=== PATIENT | female | born 2000 | race Caucasian/White ===

== ENCOUNTER 2020-04-03 16:52 | Outpatient (CLI) | payer OTHER, MEDICAID | END 2020-04-03 16:53 | disposition EMS.NT | LOC: EMS 16:52 | PROVIDERS: ATTEND Surgery | DX: R55 Syncope and collapse (principal); R56.9 Unspecified convulsions ==

== ENCOUNTER 2020-05-19 15:40 | Emergency (ER) | payer MEDICAID ==
[2020-05-19 16:28] LABS: BASOPHILS % (AUTO) 0.4 %; EOSINOPHILS % (AUTO) 0.4 %; HGB - HEMOGLOBIN 14.5 g/dL (12.0-16.0); LYMPHOCYTES # (AUTO) 2.9 10^3/uL (1.5-3.5); MEAN CORPUSCULAR HEMOGLOBIN 34.5 pg (27.0-31.0); MEAN CORPUSCULAR HGB CONC 35.9 g/dL (32.0-36.0); MEAN CORPUSCULAR VOLUME 96.2 fL (81.0-99.0); MEAN PLATELET VOLUME 11.4 fL (7.9-10.8); MONOCYTES # (AUTO) 0.8 10^3/uL (0.0-1.0); MONOCYTES % (AUTO) 8.3 %; NEUTROPHILS # (AUTO) 5.3 10^3/uL (1.5-6.6); NEUTROPHILS % (AUTO) 58.6 %; PLT - PLATELET COUNT 335 10^3/uL (130-450); RED CELL DISTRIBUTION WIDTH 11.5 % (12.0-15.0)
[2020-05-19 16:35] LABS: ALBUMIN 4.7 g/dL (3.2-5.5); ALBUMIN/GLOBULIN RATIO 1.5 (1.0-2.2); BILIRUBIN,TOTAL 0.5 mg/dL (0.2-1.0); CALCIUM 9.7 mg/dL (8.5-10.3); CREATININE 0.9 mg/dL (0.4-1.0); TOTAL PROTEIN 7.8 g/dL (6.7-8.2)
--- NOTE | 2020-05-19 16:42 | ED Physician Documentation ---
History of Present Illness - Stated complaint Stated Complaint: FEMALE - Chief complaint Chief Complaint: Abd Pain - History obtained from History obtained from: Patient, Caregiver - History of Present Illness Timing: Prior to arrival, How many weeks ago (3) - Additonal information Additional information: 20-year-old female presents to the emergency department for dysuria and vaginal discharge. 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 She is attended by her caregiver. The patient does report that she has been sexually active with her boyfriend and recently they had used shower gel for lubrication not understanding that it may be vaginally an irritant. This sexual encounter may have occurred a few weeks ago but patient states it is only hurt to pee for a few days. She does state that she has had vaginal discharge for about 2 months. Her caregiver reports that they had concerns that she may have had a yeast infection and was treated with miconazole cream recently. Patient denies that she has had any fevers or pertinent surgical history. meds: Midodrine, fludrocortisone, Aripiprazole, desvenlafaxine, Buspirone. Review of Systems Unable to obtain: Other (difficult to obtain) Constitutional: denies: Fever, Chills Cardiac: denies: Chest pain / pressure Respiratory: denies: Dyspnea, Cough GI: denies: Abdominal Pain, Abdominal Swelling, Vomiting : reports: Dysuria, Vaginal bleeding, Irregular menses, Control (IUD in place). denies: Hematuria Skin: denies: Rash, Lesions Musculoskeletal: denies: Neck pain, Back pain Neurologic: denies: Generalized weakness, Focal weakness PD PAST MEDICAL HISTORY - Present Medications Home Medications: Ambulatory Orders Medication Instructions Recorded Confirmed Doxycycline Hyclate 100 mg PO BID #20 capsule 05/19/20 metroNIDAZOLE [Flagyl] 500 mg PO BID #20 tablet 05/19/20 - Allergies Allergies/Adverse Reactions: Allergies Allergy/AdvReac Type Severity Reaction Status Date / Time walnut Allergy Unknown Verified 05/19/20 15:47 PD ED PE NORMAL - General General: Alert and oriented X 3, No acute distress - HEENT HEENT: Atraumatic, EOMI - Neck Neck: Supple, no meningeal sign, No adenopathy - Cardiac Cardiac: RRR, No murmur - Respiratory Respiratory: No respiratory distress - Abdomen Abdomen: Normal bowel sounds. No: Non tender (suprapubic lower pelvic tenderness) - Female Female : Smoke Eater present, Other (Inflamed friable cervix with a large amount of thick yellow discharge seen exiting cervical os. IUD strings are not present. Bilateral adnexal tenderness.) - Back Back: No CVA TTP - Derm Derm: Normal color, Warm and dry - Extremities Extremities: No deformity - Neuro Neuro: Alert and oriented X 3, structures engineer 2-12 intact, No motor deficit Eye Opening: Spontaneous Motor: Obeys Commands Verbal: Oriented GCS Score: 15 Results - Vitals Vitals: Vital Signs - 24 hr 05/19/20 05/19/20 15:47 19:21 Temperature 36.6 C 37.1 C Heart Rate 113 H 93 Respiratory 16 20 Rate Blood Pressure 109/71 108/75 O2 Saturation 96 98 Oxygen O2 Source Room air - Labs Labs: Laboratory Tests 05/19/20 05/19/20 05/19/20 16:17 16:17 16:58 WBC 9.0 RBC 4.20 Hgb 14.5 Hct 40.4 MCV 96.2 MCH 34.5 H MCHC 35.9 RDW 11.5 L Plt Count 335 MPV 11.4 H Neut # (Auto) 5.3 Lymph # (Auto) 2.9 [place] # (Auto) 0.8 Eos # (Auto) 0.0 Baso # (Auto) 0.0 Absolute Nucleated RBC 0.00 Nucleated RBC % 0.0 Sodium 139 Potassium 3.6 Chloride 104 Carbon Dioxide 24 Anion Gap 11.0 BUN 16 Creatinine 0.9 Estimated GFR (MDRD) 80 L Glucose 98 Calcium 9.7 Total Bilirubin 0.5 AST 24 ALT 31 Alkaline Phosphatase 74 Total Protein 7.8 Albumin 4.7 Globulin 3.1 Albumin/Globulin Ratio 1.5 Lipase 24 Urine Color YELLOW Urine Clarity CLEAR Urine pH 7.0 Ur Specific [place] 1.015 Urine Protein NEGATIVE Urine Glucose (UA) NEGATIVE Urine Ketones NEGATIVE Urine Occult Blood NEGATIVE Urine Nitrite NEGATIVE Urine Bilirubin NEGATIVE Urine Urobilinogen 0.2 (NORMAL) Ur Leukocyte Esterase NEGATIVE Ur Microscopic Review NOT INDICATED Urine Culture Comments NOT INDICATED Urine HCG, Qual NEGATIVE - Rads (name of study) Pelvic US Radiology: Final report received ( Increased bilateral adnexal vascularity with right distal dilation at 5 mm, concern for PID. 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 The timing of the events is unclear. As patient is not able to provide a clear timeline - Her urine shows no signs of infection. She is not . - A pelvic exam was completed and she had a very friable cervix with a large amount of yellow discharge in the vault. In addition she had bilateral adnexal tenderness the right greater than left. My suspicion is that this young lady has PID. I will proceed with ultrasound imaging to rule out a TOA. I have prescribed ceftriaxone to be given here in the emergency department and I will plan to discharge her with a prescription for doxycycline and Flagyl on discharge. Departure - Departure Disposition: 01 Home, Self Care Clinical Impression: PID (acute pelvic inflammatory disease) Condition: Stable Record reviewed to determine appropriate education?: Yes Instructions: ED PID Follow-Up: Gaurav Morales ARNP [Primary Care Provider] - Prescriptions: Doxycycline Hyclate 100 mg PO BID #20 capsule metroNIDAZOLE [Flagyl] 500 mg PO BID #20 tablet Comments: Ning I am concerned that the vaginal discharge and pain that you are having is most likely a condition called PID. This is also called pelvic inflammatory disease and it is infection and inflammation of the pelvic organs usually due to unprotected sex and sexually transmitted infection. Though we do not have the results of your STD testing back yet we are treating as you as though you do have sexually transmitted infection. We have given you an injection of an antibiotic called ceftriaxone here in the emergency department and you are being prescribed 2 antibiotics to take twice a day for the next 10 days at home. I would expect that with these antibiotics your vaginal discharge and pain begins to improve over the next 3 to 4 days if your symptoms are not improving, you have high fevers, uncontrolled vomiting then please return for a second look. Though you cannot feel the IUD strings and they were not seen on your pelvic exam the IUD is still situated within your uterus. I would ask that you follow- up with your primary care provider or your inspector shells within the next 10 days to 2 weeks for this ER visit.
[2020-05-19 17:22] LABS: BILIRUBIN,URINE NEGATIVE (NEGATIVE); GLUCOSE, URINE (UA) NEGATIVE (NEGATIVE); KETONES,URINE (UA) NEGATIVE (NEGATIVE); LEUKOCYTE ESTERASE, URINE NEGATIVE (NEGATIVE); NITRITE,URINE NEGATIVE (NEGATIVE); OCCULT BLOOD,URINE NEGATIVE (NEGATIVE); PROTEIN,URINE NEGATIVE (NEGATIVE); UROBILINOGEN,URINE 0.2 (NORMAL) E.U./dL (NORMAL)
[2020-05-19 17:36] LABS: CLARITY,URINE CLEAR (CLEAR); HCG UR QUAL NEGATIVE
[2020-05-19 19:21] VITALS: BP 108/75
[2020-05-19] MEDS: cefTRIAXone 250 MG VIAL IM STA (19:22)
[2020-05-19] MEDS: LIDOCAINE 1% 2 ML VIAL MC ONE (19:23)
--- NOTE | 2020-05-19 19:35 | Ultrasound Report ---
PROCEDURE: Transvaginal INDICATIONS: pelvic pain; PID; r/o toa TECHNIQUE: Real-time scanning was performed of the pelvic organs, with image documentation. Additional endovagi nal scanning was necessary due to incomplete visualization of the adnexal and endometrial structures by transabdominal scanning. COMPARISON: None. FINDINGS: Transabdominal scanning: Limited scanning through the kidneys shows no hydronephrosis. Punctate echo genic foci within the bilateral kidneys may represent nonobstructing calculi. No pathologic free abdo mian or pelvic fluid. Endovaginal scanning: Uterus: Uterus is normal in size at 6.4 x 4.0 x 4.7 cm. The endometrium measures 3 mm in combined t hickness. An IUD is present within the uterine fundus in the expected location. Trace fluid is prese nt around the IUD which may be physiologic. Ovaries: The right ovary measures 2.7 x 2.7 x 2.4 cm and the left ovary measures 2.7 x 1.7 x 1.9 cm. Multiple small follicles are visualized bilaterally. Multiple tortuous, ectatic adnexal vessels are noted bilaterally. No findings to suggest fluid-filled fallopian tubes. IMPRESSION: 1. IUD in expected location. Trace fluid around the IUD may be physiologic in nature. 2. No dilatation of the fallopian tubes to suggest tubo-ovarian abscess. 3. Tortuous, ectatic gonadal vessels. These findings may be associated with pelvic congestion syndrom e. Please correlate clinically. Reviewed by: Dee Dee Blanco MD on 05/19/2020 7:33 PM PDT Approved by: Dee Dee Blanco MD on 05/19/2020 7:33 PM PDT Station ID: [id number]
--- NOTE | 2020-05-19 20:22 | Ultrasound Report ---
INDICATIONS: pelvic pain; PID; r/o toa TECHNIQUE: Real-time scanning was performed of the pelvic organs, with image documentation. Additiona l endovaginal scanning was necessary due to incomplete visualization of the adnexal and endometrial s tructures by transabdominal scanning. COMPARISON: None. FINDINGS: Transabdominal scanning: Limited scanning through the kidneys shows no hydronephrosis. Punc pereira echogenic foci within the bilateral kidneys may represent nonobstructing calculi. No pathologic free abdominal or pelvic fluid. Endovaginal scanning: Uterus: Uterus is normal in size at 6.4 x 4.0 x 4.7 cm. The endometrium measure s 3 mm in combined thickness. An IUD is present within the uterine fundus in the expected location. T race fluid is present around the IUD which may be physiologic. Ovaries: The right ovary measures 2.7 x 2.7 x 2.4 cm and the left ovary measures 2.7 x 1.7 x 1.9 cm. Multiple small follicles are visualized bilaterally. Multiple tortuous, ectatic adnexal vessels are n oted bilaterally. No findings to suggest fluid-filled fallopian tubes. IMPRESSION: 1. IUD in expected location. Trace fluid around the IUD may be physiologic in nature. 2. No dilatation of the fallopian tubes to suggest tubo-ovarian abscess. 3. Tortuous, ectatic gonadal vessels. These findings may be associated with pelvic congestion syndrom e. Please correlate clinically. Reviewed by: Dee Dee Blanco MD on 05/19/2020 8:21 PM PDT Approved by: Dee Dee Blanco MD on 05/19/2020 8:21 PM PDT Station ID: [id number]
[2020-05-19 21:28] LABS: TRICHOMONAS VAGINALIS DNA NEGATIVE (NEGATIVE)
[2020-05-19 21:59] LABS: CANDIDA GROUP DNA NEGATIVE (NEGATIVE); CANDIDA KRUSEI DNA NEGATIVE (NEGATIVE); TRICHOMONAS VAGINALIS DNA NEGATIVE (NEGATIVE)
== END 2020-05-19 20:00 | disposition home or self-care (01) ==
LOC: ED 15:40
DX: N73.9 Female pelvic inflammatory disease, unspecified (principal); Z97.5 Presence of (intrauterine) contraceptive device
CPT/HCPCS: 36415; 76830; 76856; 80053; 81001; 81003; 81025; 83690; 85025; 87086; 87210; 87491; 87591; 87661; 87801; 96372; 99284

== ENCOUNTER 2020-05-20 21:00 | Outpatient (CLI) | payer OTHER, MEDICAID | END 2020-05-20 23:59 | disposition critical access hospital (66) | LOC: EMS 21:00 | PROVIDERS: ATTEND Surgery | DX: R56.9 Unspecified convulsions (principal) | CPT/HCPCS: A0425; A0427 ==

== ENCOUNTER 2020-06-20 20:53 | Emergency (ER) | payer OTHER, MEDICAID ==
--- NOTE | 2020-06-20 21:29 | ED Physician Documentation ---
PD HPI FEMALE - Stated complaint Stated Complaint: FEMALE - Chief complaint Chief Complaint: Allergic Rx - History obtained from History obtained from: Patient - Additional information Additional information: The sex toys she usually uses broke, in the interim pending getting a new one she was using a hairbrush but because it was not a sex toy she put condoms on it not realizing they were latex which she is very allergic to. This happened over several day time span, and now her privates are very inflamed. Review of Systems Constitutional: denies: Fever, Chills Throat: reports: Reviewed and negative Cardiac: reports: Reviewed and negative Respiratory: reports: Reviewed and negative PD PAST MEDICAL HISTORY - Past Medical History Cardiovascular: Other Respiratory: None Neuro: Other Endocrine/Autoimmune: None GI: None MEDICARE INTERVIEWER: None : None HEENT: None Psych: Schizophrenia, ADD/ADHD, Other Musculoskeletal: None Derm: None - Past Surgical History Past Surgical History: No - Present Medications Home Medications: Ambulatory Orders Medication Instructions Recorded Confirmed Doxycycline Hyclate 100 mg PO BID #20 capsule 05/19/20 05/20/20 metroNIDAZOLE [Flagyl] 500 mg PO BID #20 tablet 05/19/20 05/20/20 ARIPiprazole [Aripiprazole] 15 mg PO QPM 05/20/20 05/20/20 Acetaminophen [Tylenol Extra 500 mg PO DAILY PRN 05/20/20 05/20/20 Strength] Buspirone HCl 10 mg PO TID 05/20/20 05/20/20 Desvenlafaxine Succinate 100 mg PO DAILY 05/20/20 05/20/20 [Desvenlafaxine Succinate ER] Fludrocortisone [Florinef] 2 tab PO DAILY 05/20/20 05/20/20 Ibuprofen 200 mg PO DAILY PRN 05/20/20 05/20/20 Midodrine HCl 5 mg PO DAILY 05/20/20 05/20/20 Phenazopyridine HCl [Pyridium] 100 mg PO DAILY PRN 05/20/20 05/20/20 polyethylene glycoL 3350 [Miralax] 17 gm PO DAILY PRN 05/20/20 05/20/20 Hydrocortisone 1% Oint 1 applic TP TID #2 tub 06/20/20 [Hydrocortisone] - Allergies Allergies/Adverse Reactions: Allergies Allergy/AdvReac Type Severity Reaction Status Date / Time Latex, Natural Rubber Allergy Itching Verified 06/20/20 20:57 walnut Allergy Unknown Verified 05/20/20 21:34 - Social History Does the pt smoke?: No Smoking Status: Never smoker Does the pt drink ETOH?: Yes Does the pt have substance abuse?: No - Immunizations Immunizations are current?: Yes - POLST Patient has POLST: No PD ED PE NORMAL - Vitals Vital signs reviewed: Yes - General General: Alert and oriented X 3, No acute distress - Female Female : Other (Exam done with Gaurav CARPENTER present and chaperoning, mild vulvar irritation and clearish discharge without skin breakdown.) Results - Vitals Vitals: Vital Signs - 24 hr 06/20/20 20:57 Temperature 36.6 C Heart Rate 86 Respiratory 16 Rate Blood Pressure 124/77 O2 Saturation 97 Oxygen O2 Source Room air PD MEDICAL DECISION MAKING - ED course ED course: 20-year-old with underlying psychiatric illness presents with apparent local latex contact dermatitis to the vagina. Hesitant to use oral steroids given her underlying psychiatric illness and relatively mild changes on exam, topical hydrocortisone was administered. Departure - Departure Disposition: 01 Home, Self Care Clinical Impression: Contact dermatitis Qualifiers: Contact dermatitis type: irritant Contact dermatitis trigger: other chemical product Qualified Code(s): L24.5 - Irritant contact dermatitis due to other chemical products Condition: Good Record reviewed to determine appropriate education?: Yes Instructions: ED Dermatitis Contact Follow-Up: [facility] [Provider Group] Prescriptions: Hydrocortisone 1% Oint [Hydrocortisone] 1 applic TP TID #2 tub
[2020-06-20] MEDS ORDERED: HYDROCORTISONE 1% OINTMENT 28 GM TUBE TOP STA (21:42)
[2020-06-20] MEDS ORDERED: HYDROCORTISONE 1% CREAM 28 GM TUBE ONE (22:13)
[2020-06-20 22:15] VITALS: BP 120/71
[2020-06-20] MEDS ORDERED: HYDROCORTISONE 1% CREAM 28 GM TUBE TOP SCH (23:00)
== END 2020-06-20 22:15 | disposition home or self-care (01) ==
LOC: ED 20:53
DX: L24.5 Irritant contact dermatitis due to other chemical products (principal)
CPT/HCPCS: 99282; 99283; A9270

== ENCOUNTER 2020-07-13 19:00 | Outpatient (CLI) | payer OTHER, MEDICAID | END 2020-07-13 19:01 | disposition critical access hospital (66) | LOC: EMS 19:00 | PROVIDERS: ATTEND Surgery | DX: R44.3 Hallucinations, unspecified (principal) | CPT/HCPCS: A0425; A0429 ==

== ENCOUNTER 2020-07-13 19:21 | Emergency (ER) | payer OTHER, MEDICAID ==
[2020-07-13] MEDS ORDERED: LORazepam 2 MG/ML VIAL IVP STA (19:23)
--- NOTE | 2020-07-13 19:33 | ED Physician Documentation ---
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 : None HEENT: None Psych: Schizophrenia, ADD/ADHD, Other Musculoskeletal: None Derm: None - Past Surgical History Past Surgical History: No - Present Medications Home Medications: Ambulatory Orders Medication Instructions Recorded Confirmed ARIPiprazole [Aripiprazole] 20 mg PO QPM 05/20/20 05/20/20 Acetaminophen [Tylenol Extra 500 mg PO DAILY PRN 05/20/20 05/20/20 Strength] Buspirone HCl 10 mg PO TID 05/20/20 05/20/20 Desvenlafaxine Succinate 100 mg PO DAILY 05/20/20 05/20/20 [Desvenlafaxine Succinate ER] Fludrocortisone [Florinef] 2 tab PO DAILY 05/20/20 05/20/20 Ibuprofen 200 mg PO DAILY PRN 05/20/20 05/20/20 Midodrine HCl 5 mg PO DAILY 05/20/20 05/20/20 Phenazopyridine HCl [Pyridium] 100 mg PO DAILY PRN 05/20/20 05/20/20 polyethylene glycoL 3350 [Miralax] 17 gm PO DAILY PRN 05/20/20 05/20/20 Hydrocortisone 1% Oint 1 applic TP TID #2 tub 06/20/20 [Hydrocortisone] Cetirizine HCl 10 mg PO 07/13/20 Valacyclovir HCl [Valacyclovir] 500 mg PO DAILY 07/13/20 07/13/20 - Allergies Allergies/Adverse Reactions: Allergies Allergy/AdvReac Type Severity Reaction Status Date / Time Latex, Natural Rubber Allergy Itching Verified 06/20/20 20:57 walnut Allergy Unknown Verified 05/20/20 21:34 - Social History Does the pt smoke?: No Smoking Status: Never smoker Does the pt drink ETOH?: Yes Does the pt have substance abuse?: No - Immunizations Immunizations are current?: Yes - POLST Patient has POLST: No PD ED PE NORMAL - Vitals Vital signs reviewed: Yes - General General: Other (She is looking around and staring, she is not following commands though. Intermittently screaming.) - HEENT HEENT: Other (Dilated pupils) - Neck Neck: Supple, no meningeal sign, No bony TTP - Derm Derm: No rash - Neuro Neuro: No motor deficit (Moving all extremities excellently), No sensory deficit Eye Opening: Spontaneous Motor: Obeys Commands (Intermittently) Verbal: Inappropriate GCS Score: 13 Results - Vitals Vitals: Vital Signs - 24 hr 07/13/20 07/13/20 07/13/20 19:22 19:40 21:00 Temperature 37.5 C Heart Rate 95 107 H 113 H Respiratory 26 H 16 18 Rate Blood Pressure 131/97 H 122/95 H 112/86 H O2 Saturation 97 97 96 Oxygen O2 Source Room air - Labs Labs: Laboratory Tests 07/13/20 20:12 Ur Specific [place] 1.025 Urine HCG, Qual NEGATIVE Urine Opiates Screen NEGATIVE Ur Oxycodone Screen NEGATIVE Urine Methadone Screen NEGATIVE Ur Propoxyphene Screen NEGATIVE Ur Barbiturates Screen NEGATIVE Ur Tricyclics Screen NEGATIVE Ur Phencyclidine Scrn NEGATIVE Ur Amphetamine Screen NEGATIVE U Methamphetamines Scrn NEGATIVE U Benzodiazepines Scrn NEGATIVE Urine Cocaine Screen NEGATIVE U Cannabinoids Screen POSITIVE H PD MEDICAL DECISION MAKING - ED course ED course: 20 yo with brief psychosis d/t MJ overdose. Better with time and ativan IM. Back to baseline. Departure - Departure Disposition: 01 Home, Self Care Clinical Impression: Poisoning, marijuana Qualifiers: Encounter type: initial encounter Injury intent: accidental or unintentional Q ualified Code(s): T40.7X1A - Poisoning by cannabis (derivatives), accidental (unintentional), initial encounter Condition: Good Record reviewed to determine appropriate education?: Yes Instructions: ED Drug Abuse General Comments: Call your doctor to arrange a follow-up appointment, make the next available appointment. In the interim, return anytime if worse or if new symptoms develop. Discharge Date/Time: 07/13/20 21:38
[2020-07-13 21:28] VITALS: BP 112/86
[2020-07-13 21:31] LABS: MUDS CUTOFF CONCENTRATIONS CUTOFF CONC BELOW:
[2020-07-13 21:37] LABS: HCG UR QUAL NEGATIVE
[2020-07-13 21:47] LABS: AMPHETAMINE SCREEN,URINE NEGATIVE (NEGATIVE); BENZODIAZEPINES SCREEN, URINE NEGATIVE (NEGATIVE); COCAINE SCREEN URINE NEGATIVE (NEGATIVE); METHADONE SCREEN, URINE NEGATIVE (NEGATIVE); METHAMPHETAMINES SCREEN, URINE NEGATIVE (NEGATIVE); OPIATE SCREEN, URINE NEGATIVE (NEGATIVE); OXYCODONE SCREEN, URINE NEGATIVE (NEGATIVE); PROPOXYPHENE SCREEN, URINE NEGATIVE (NEGATIVE); TRICYCLIC ANTIDEPRESSANT,URINE NEGATIVE (NEGATIVE)
== END 2020-07-13 21:38 | disposition home or self-care (01) ==
LOC: EDBD → EDUNIT# → ED 19:21
DX: T40.7X1A Poisoning by cannabis (derivatives), accidental (unintentional), initial encounter (principal); F23 Brief psychotic disorder; F12.959 Cannabis use, unspecified with psychotic disorder, unspecified
CPT/HCPCS: 80306; 81025; 96374; 99281; 99283; J2060

== ENCOUNTER 2020-09-14 15:29 | Outpatient (CLI) | payer OTHER, MEDICAID | END 2020-09-14 15:30 | disposition home or self-care (01) | LOC: COV 15:29 | PROVIDERS: ATTEND Family Medicine | DX: R05 Cough (principal); M79.10 Myalgia, unspecified site; R53.83 Other fatigue; R19.7 Diarrhea, unspecified; R09.81 Nasal congestion; J34.89 Other specified disorders of nose and nasal sinuses; R11.2 Nausea with vomiting, unspecified; Z20.828 Contact with and (suspected) exposure to other viral communicable diseases ==

== ENCOUNTER 2020-10-23 16:01 | Emergency (ER) | payer OTHER, MEDICAID ==
[2020-10-23 16:09] VITALS: BP 128/85
[2020-10-23] MEDS ORDERED: SODIUM CHLORIDE 0.9% 1,000 ML IV STA ×2 (16:50)
[2020-10-23] MEDS ORDERED: BUTALB/ACETAM/CAFF 50/325/40MG TABLET PO STA (17:01)
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
== END 2020-10-23 18:00 | disposition home or self-care (01) ==
LOC: ED 16:01
DX: F41.9 Anxiety disorder, unspecified (principal); I49.8 Other specified cardiac arrhythmias; R51.9 Headache, unspecified
CPT/HCPCS: 99283; 99284; A9270; 80048; 85025

== ENCOUNTER 2020-11-08 12:12 | Outpatient (CLI) | payer MEDICAID | END 2020-11-08 12:13 | disposition critical access hospital (66) | LOC: EMS 12:12 | DX: H92.02 Otalgia, left ear (principal); T16.2XXA Foreign body in left ear, initial encounter; X58.XXXA Exposure to other specified factors, initial encounter; Y93.89 Activity, other specified | CPT/HCPCS: A0425; A0429; A0999 ==

== ENCOUNTER 2020-11-08 12:34 | Emergency (ER) | payer MEDICAID, OTHER ==
[2020-11-08 12:42] VITALS: BP 147/100
--- NOTE | 2020-11-08 12:49 | ED Physician Documentation ---
PD HPI HEENT - Stated complaint Stated Complaint: LEAD IN EAR - Chief complaint Chief Complaint: Heent - History obtained from History obtained from: Patient, EMS (She comes to the ER via EMS Because she was scratching in her left ear with a pencil and the lead broke off and it is in her ear canal. No pain. Hearing is normal.) Review of Systems Eyes: reports: Reviewed and negative Ears: reports: Foreign body. denies: Loss of hearing, Ear pain, Drainage/discharge, Tinnitus/ringing Nose: denies: Rhinorrhea / runny nose, Congestion PD PAST MEDICAL HISTORY - Past Medical History Cardiovascular: Other Respiratory: None Neuro: Other Endocrine/Autoimmune: None GI: None PROGRAM ASSOCIATE: None : None HEENT: None Psych: Schizophrenia, ADD/ADHD, Other Musculoskeletal: None Derm: None - Past Surgical History Past Surgical History: No - Present Medications Home Medications: Ambulatory Orders Medication Instructions Recorded Confirmed ARIPiprazole [Aripiprazole] 20 mg PO QPM 05/20/20 05/20/20 Acetaminophen [Tylenol Extra 500 mg PO DAILY PRN 05/20/20 05/20/20 Strength] Buspirone HCl 10 mg PO TID 05/20/20 05/20/20 Desvenlafaxine Succinate 100 mg PO DAILY 05/20/20 05/20/20 [Desvenlafaxine Succinate ER] Fludrocortisone [Florinef] 2 tab PO DAILY 05/20/20 05/20/20 Ibuprofen 200 mg PO DAILY PRN 05/20/20 05/20/20 Midodrine HCl 5 mg PO DAILY 05/20/20 05/20/20 polyethylene glycoL 3350 [Miralax] 17 gm PO DAILY PRN 05/20/20 05/20/20 Hydrocortisone 1% Oint 1 applic TP TID #2 tub 06/20/20 [Hydrocortisone] Cetirizine HCl 10 mg PO 07/13/20 Valacyclovir HCl [Valacyclovir] 500 mg PO DAILY 07/13/20 07/13/20 - Allergies Allergies/Adverse Reactions: Allergies Allergy/AdvReac Type Severity Reaction Status Date / Time Latex, Natural Rubber Allergy Itching Verified 11/08/20 12:42 walnut Allergy Unknown Verified 11/08/20 12:42 - Social History Does the pt smoke?: No Smoking Status: Never smoker Does the pt drink ETOH?: Yes Does the pt have substance abuse?: No - Immunizations Immunizations are current?: Yes - POLST Patient has POLST: No PD ED PE NORMAL - Vitals Vital signs reviewed: Yes - General General: Alert and oriented X 3, No acute distress - HEENT HEENT: Other (There is a visible piece of pencil lead sitting in the canal of the left ear. No evidence of tympanic rupture.) - Neck Neck: Supple, no meningeal sign, No bony TTP - Neuro Neuro: Alert and oriented X 3, Normal speech Results - Vitals Vitals: Vital Signs - 24 hr 11/08/20 12:38 Temperature 36.7 C Heart Rate 94 Respiratory 18 Rate Blood Pressure 147/100 H O2 Saturation 99 Oxygen O2 Source Room air Procedures - General procedure General procedure: Using gentle irrigation with warm water the pencil lead was easily removed from the left ear without complication. Departure - Departure Disposition: 01 Home, Self Care Clinical Impression: Foreign body of ear, left Qualifiers: Encounter type: initial encounter Qualified Code(s): T16.2XXA - Foreign body in left ear, initial encounter Condition: Good Record reviewed to determine appropriate education?: Yes Instructions: ED Foreign Body Ear Canal Comments: Your blood pressure was elevated today on check into the emergency department. This does not mean that you have hypertension, it is a common phenomenon to come to the emergency department and have elevated blood pressure. I recommend that you see your primary care physician within the week to have it rechecked when you are feeling better. Discharge Date/Time: 11/08/20 12:57
== END 2020-11-08 12:57 | disposition home or self-care (01) ==
LOC: ED 12:34
DX: T16.2XXA Foreign body in left ear, initial encounter (principal); X58.XXXA Exposure to other specified factors, initial encounter; Y93.89 Activity, other specified; R03.0 Elevated blood-pressure reading, without diagnosis of hypertension
CPT/HCPCS: 69200; 99282; 99283

== ENCOUNTER 2021-01-16 11:17 | Outpatient (CLI) | payer MEDICAID | END 2021-01-16 11:18 | disposition critical access hospital (66) | LOC: EMS 11:17 | DX: R45.851 Suicidal ideations (principal); F41.9 Anxiety disorder, unspecified | CPT/HCPCS: A0425; A0429; A0999 ==

== ENCOUNTER 2021-01-16 11:37 | Emergency (ER) | payer MEDICAID ==
--- NOTE | 2021-01-16 11:49 | ED Physician Documentation ---
History of Present Illness - Stated complaint Stated Complaint: MHE - Additonal information Additional information: 20-year-old female presents to the emergency department via EMS for thoughts of self-harm. She has a history of schizophrenia, depression personality disorder, panic attacks and alcohol syndrome. She reports that she has been out of her maintenance medication for about 2 days. She is unsure what the name of that medication is but it is 100 mg. She states that she hears voices telling her to harm herself and she is afraid that she will do that. Because of the voices she began having a panic attack at home. She reports a history of psychiatric hospitalization but it has been more than a year. She lives with a roommate. She denies drug or alcohol use though there are other emergency department visits for cannabis associated concerns. Review of Systems Constitutional: denies: Fever, Chills Eyes: reports: Reviewed and negative Ears: reports: Reviewed and negative Nose: reports: Reviewed and negative Throat: reports: Dental pain / toothache Cardiac: reports: Reviewed and negative Respiratory: reports: Reviewed and negative GI: reports: Reviewed and negative : reports: Reviewed and negative Skin: reports: Reviewed and negative Musculoskeletal: reports: Reviewed and negative Neurologic: reports: Reviewed and negative Psychiatric: reports: Depressed, Suicidal, Hallucinations. denies: Delusions PD PAST MEDICAL HISTORY - Past Medical History Cardiovascular: Other Respiratory: None Neuro: Other Endocrine/Autoimmune: None GI: None BUSINESS OFFICE COORDINATOR: None : None HEENT: None Psych: Schizophrenia, ADD/ADHD, Other Musculoskeletal: None Derm: None - Past Surgical History Past Surgical History: No - Present Medications Home Medications: Ambulatory Orders Medication Instructions Recorded Confirmed ARIPiprazole [Aripiprazole] 20 mg PO QPM 05/20/20 05/20/20 Acetaminophen [Tylenol Extra 500 mg PO DAILY PRN 05/20/20 05/20/20 Strength] Buspirone HCl 10 mg PO TID 05/20/20 05/20/20 Desvenlafaxine Succinate 100 mg PO DAILY 05/20/20 05/20/20 [Desvenlafaxine Succinate ER] Fludrocortisone [Florinef] 2 tab PO DAILY 05/20/20 05/20/20 Ibuprofen 200 mg PO DAILY PRN 05/20/20 05/20/20 Midodrine HCl 5 mg PO DAILY 05/20/20 05/20/20 polyethylene glycoL 3350 [Miralax] 17 gm PO DAILY PRN 05/20/20 05/20/20 Hydrocortisone 1% Oint 1 applic TP TID #2 tub 06/20/20 [Hydrocortisone] Cetirizine HCl 10 mg PO 07/13/20 Valacyclovir HCl [Valacyclovir] 500 mg PO DAILY 07/13/20 07/13/20 LORazepam [Ativan] 1 mg PO ONCE PRN #14 tablet 01/16/21 - Allergies Allergies/Adverse Reactions: Allergies Allergy/AdvReac Type Severity Reaction Status Date / Time Latex, Natural Rubber Allergy Itching Verified 01/16/21 11:43 walnut Allergy Unknown Verified 01/16/21 11:43 - Social History Does the pt smoke?: No Smoking Status: Never smoker Does the pt drink ETOH?: Yes Does the pt have substance abuse?: No - Immunizations Immunizations are current?: Yes - POLST Patient has POLST: No PD ED PE EXPANDED - General General: Alert, No acute distress, Other (Extensive facial and eye make-up.) - Neck Neck: Supple w/out meningeal sx. No: Adenopathy - Cardiac Cardiac: Regular Rate, Radial strong equal, Pedal strong equal, Cap refill < 2 sec. No: Murmur Present - Respiratory Respiratory: Clear to ausultation ashley. No: Distress, Labored - Abdomen Abdomen: Normal Bowel sounds. No: Tender to palpation - Extremities Extremities: Normal. No: Tenderness - Psych Psych: Normal, Auditory hallucinations (Hears voices to harm herself.) Results - Vitals Vitals: Vital Signs - 24 hr 01/16/21 11:43 Temperature 37.3 C Heart Rate 85 Respiratory 18 Rate Blood Pressure 112/73 O2 Saturation 100 Oxygen O2 Source Room air - Labs Labs: Laboratory Tests 01/16/21 01/16/21 01/16/21 11:58 11:58 11:58 WBC 7.6 RBC 3.78 L Hgb 13.0 Hct 36.4 L MCV 96.3 MCH 34.4 H MCHC 35.7 RDW 11.9 L Plt Count 280 MPV 11.8 H Neut # (Auto) 4.9 Lymph # (Auto) 1.8 [place] # (Auto) 0.5 Eos # (Auto) 0.2 Baso # (Auto) 0.1 Absolute Nucleated RBC 0.00 Nucleated RBC % 0.0 Sodium 139 Potassium 4.0 Chloride 106 Carbon Dioxide 26 Anion Gap 7.0 BUN 10 Creatinine 0.7 Estimated GFR (MDRD) 107 Glucose 88 Calcium 9.6 Total Bilirubin 0.4 AST 19 ALT 15 Alkaline Phosphatase 82 Total Protein 6.8 Albumin 4.1 Globulin 2.7 Albumin/Globulin Ratio 1.5 Lipase 26 TSH 2.19 Urine Color Urine Clarity Urine pH Ur Specific [place] Urine Protein Urine Glucose (UA) Urine Ketones Urine Occult Blood Urine Nitrite Urine Bilirubin Urine Urobilinogen Ur Leukocyte Esterase Ur Microscopic Review Urine Culture Comments Urine HCG, Qual Salicylates < 6.0 Urine Opiates Screen Ur Oxycodone Screen Urine Methadone Screen Ur Propoxyphene Screen Acetaminophen < 10 L Ur Barbiturates Screen Ur Tricyclics Screen Ur Phencyclidine Scrn Ur Amphetamine Screen U Methamphetamines Scrn U Benzodiazepines Scrn Urine Cocaine Screen U Cannabinoids Screen Ethyl Alcohol < 5.0 01/16/21 12:40 WBC RBC Hgb Hct MCV MCH MCHC RDW Plt Count MPV Neut # (Auto) Lymph # (Auto) [place] # (Auto) Eos # (Auto) Baso # (Auto) Absolute Nucleated RBC Nucleated RBC % Sodium Potassium Chloride Carbon Dioxide Anion Gap BUN Creatinine Estimated GFR (MDRD) Glucose Calcium Total Bilirubin AST ALT Alkaline Phosphatase Total Protein Albumin Globulin Albumin/Globulin Ratio Lipase TSH Urine Color YELLOW Urine Clarity CLEAR Urine pH 6.5 Ur Specific [place] 1.020 Urine Protein NEGATIVE Urine Glucose (UA) NEGATIVE Urine Ketones NEGATIVE Urine Occult Blood NEGATIVE Urine Nitrite NEGATIVE Urine Bilirubin NEGATIVE Urine Urobilinogen 0.2 (NORMAL) Ur Leukocyte Esterase NEGATIVE Ur Microscopic Review NOT INDICATED Urine Culture Comments NOT INDICATED Urine HCG, Qual NEGATIVE Salicylates Urine Opiates Screen NEGATIVE Ur Oxycodone Screen NEGATIVE Urine Methadone Screen NEGATIVE Ur Propoxyphene Screen NEGATIVE Acetaminophen Ur Barbiturates Screen NEGATIVE Ur Tricyclics Screen NEGATIVE Ur Phencyclidine Scrn NEGATIVE Ur Amphetamine Screen POSITIVE H U Methamphetamines Scrn NEGATIVE U Benzodiazepines Scrn NEGATIVE Urine Cocaine Screen NEGATIVE U Cannabinoids Screen NEGATIVE Ethyl Alcohol PD MEDICAL DECISION MAKING - ED course Complexity details: reviewed results, re-evaluated patient, d/w patient ED course: 20-year-old female who has a history of alcohol syndrome schizophrenia and depressive disorder presents the emergency department feeling unsafe reporting that her voices are telling her to harm herself. She unfortunately has ran out of her SNRI 2 days ago which is likely contributing to her symptoms. She has been on Desvenlafaxine For about 1 year after her last psychiatric hospitalization which has worked very well in general to control her depression and anxiety. Screening labs here today are unremarkable with the exception of an amphetamine positive urine which patient declines using. rock worker did speak with patient as well as her caregiver at her residence complex and they report that due to insurance and prior authorization they are having a difficult time getting her SNRI refilled. It is possible that by being without this medication for just a few days it is worsening her anxiety and thus her symptoms. After speaking with the patient and coordination with social work instructor patient feels safe being discharged back to her residence. We will write a prescription for a limited amount of Ativan to be used until her medication is able to be refilled. Patient easily contracts her safety and will return to the emergency department with worsening symptoms. Departure - Departure Disposition: 01 Home, Self Care Clinical Impression: Hearing voices, History of schizophrenia Depression Qualifiers: Depression Type: major depressive disorder Major depression recurrence: u nspecified whether recurrent Active/Remission status: remission status unspecified Qualified Code(s): F32.9 - Major depressive disorder, single episod e, unspecified Condition: Stable Record reviewed to determine appropriate education?: Yes Prescriptions: LORazepam [Ativan] 1 mg PO ONCE PRN #14 tablet PRN Reason: Anxiety Comments: Ning sanchez were seen in the emergency department today for increasing anxiety and feelings of self-harm after recently running out of your medication. We will write a prescription for a limited amount of Ativan to help with your anxiety symptoms until you are able to refill your medication. If at any point you feel unsafe or have thoughts of self-harm please return to the emergency department. Continue to follow-up with your therapist and behavioral health center.
--- OUTSIDE RECORDS SUMMARY | 2021-01-16 11:52 | EXTERNAL MEDICAL SUMMARY RPT | Continuity of Care Document ---
:2000 Demographics Phone Unavailable Preferred Language Unknown Marital Status Unknown Druze Affiliation Unknown Race Unknown Ethnic Group Unknown Author Organization [facility] Address [address] [id number] Phone Social History date description facility [id number]
[2021-01-16 12:11] LABS: BASOPHILS # (AUTO) 0.1 10^3/uL (0.0-0.1); BASOPHILS % (AUTO) 0.7 %; EOSINOPHILS # (AUTO) 0.2 10^3/uL (0.0-0.7); HCT - HEMATOCRIT 36.4 % (37.0-47.0); LYMPHOCYTES # (AUTO) 1.8 10^3/uL (1.5-3.5); LYMPHOCYTES % (AUTO) 23.7 %; MEAN CORPUSCULAR HEMOGLOBIN 34.4 pg (27.0-31.0); MEAN CORPUSCULAR HGB CONC 35.7 g/dL (32.0-36.0); MEAN CORPUSCULAR VOLUME 96.3 fL (81.0-99.0); MEAN PLATELET VOLUME 11.8 fL (7.9-10.8); MONOCYTES # (AUTO) 0.5 10^3/uL (0.0-1.0); NEUTROPHILS # (AUTO) 4.9 10^3/uL (1.5-6.6); NEUTROPHILS % (AUTO) 65.2 %; PLT - PLATELET COUNT 280 10^3/uL (130-450); RED BLOOD COUNT 3.78 10^6/uL (4.20-5.40); RED CELL DISTRIBUTION WIDTH 11.9 % (12.0-15.0); WHITE BLOOD COUNT 7.6 x10^3/uL (4.8-10.8)
[2021-01-16 12:45] LABS: ACETAMINOPHEN < 10 ug/mL (10-30); ALBUMIN 4.1 g/dL (3.2-5.5); ALBUMIN/GLOBULIN RATIO 1.5 (1.0-2.2); ALKALINE PHOSPHATASE 82 IU/L (42-121); ALT ALANINE AMINOTRANSFERASE 15 IU/L (10-60); AST ASPARTATE AMINOTRANSFERASE 19 IU/L (10-42); BILIRUBIN,TOTAL 0.4 mg/dL (0.2-1.0); BUN - BLOOD UREA NITROGEN 10 mg/dL (6-20); CALCIUM 9.6 mg/dL (8.5-10.3); CARBON DIOXIDE - CO2 26 mmol/L (21-32); CHLORIDE 106 mmol/L (101-111); CREATININE 0.7 mg/dL (0.4-1.0); ETOH - ETHANOL < 5.0 mg/dL; GFR - MDRD 107 (>89); GLUCOSE 88 mg/dL (70-100); LIPASE 26 U/L (22-51); SALICYLATE < 6.0 mg/dL; SODIUM 139 mmol/L (135-145); TOTAL PROTEIN 6.8 g/dL (6.7-8.2)
[2021-01-16 13:09] LABS: MUDS CUTOFF CONCENTRATIONS CUTOFF CONC BELOW:
[2021-01-16 13:15] LABS: BILIRUBIN,URINE NEGATIVE (NEGATIVE); GLUCOSE, URINE (UA) NEGATIVE (NEGATIVE); KETONES,URINE (UA) NEGATIVE (NEGATIVE); LEUKOCYTE ESTERASE, URINE NEGATIVE (NEGATIVE); NITRITE,URINE NEGATIVE (NEGATIVE); OCCULT BLOOD,URINE NEGATIVE (NEGATIVE); PH,URINE 6.5 PH (5.0-7.5); PROTEIN,URINE NEGATIVE (NEGATIVE); UROBILINOGEN,URINE 0.2 (NORMAL) E.U./dL (NORMAL)
[2021-01-16 13:18] LABS: CLARITY,URINE CLEAR (CLEAR); HCG UR QUAL NEGATIVE
[2021-01-16 13:25] LABS: AMPHETAMINE SCREEN,URINE POSITIVE (NEGATIVE); BARBITURATE SCREEN,UR NEGATIVE (NEGATIVE); BENZODIAZEPINES SCREEN, URINE NEGATIVE (NEGATIVE); COCAINE SCREEN URINE NEGATIVE (NEGATIVE); METHADONE SCREEN, URINE NEGATIVE (NEGATIVE); METHAMPHETAMINES SCREEN, URINE NEGATIVE (NEGATIVE); OPIATE SCREEN, URINE NEGATIVE (NEGATIVE); OXYCODONE SCREEN, URINE NEGATIVE (NEGATIVE); PROPOXYPHENE SCREEN, URINE NEGATIVE (NEGATIVE); THC CANNABINOID SCREEN, URINE NEGATIVE (NEGATIVE); TRICYCLIC ANTIDEPRESSANT,URINE NEGATIVE (NEGATIVE)
[2021-01-16] MEDS ORDERED: OLANZapine ODT 5 MG TABLET TL ONE (13:39)
[2021-01-16 15:25] VITALS: BP 101/61
== END 2021-01-16 15:31 | disposition home or self-care (01) ==
LOC: EDUNIT# → ED 11:37
DX: F20.9 Schizophrenia, unspecified (principal); F32.9 Major depressive disorder, single episode, unspecified; F41.9 Anxiety disorder, unspecified; Q86.0 Fetal alcohol syndrome (dysmorphic)
CPT/HCPCS: 36415; 80053; 80306; 80307; 80320; 80329; 81003; 81025; 83690; 84443; 85025; 99283; 99284; A9270; 81001; 87086

== ENCOUNTER 2021-02-06 09:39 | Outpatient (CLI) | payer MEDICAID | END 2021-02-06 09:40 | disposition critical access hospital (66) | LOC: EMS 09:39 | DX: M54.2 Cervicalgia (principal) | CPT/HCPCS: A0425; A0429 ==

== ENCOUNTER 2021-02-06 09:59 | Emergency (ER) | payer MEDICAID ==
[2021-02-06] MEDS ORDERED: KETOROLAC 30 MG/ML VIAL IM STA (10:22)
--- NOTE | 2021-02-06 10:24 | ED Physician Documentation ---
History of Present Illness - Stated complaint Stated Complaint: NECK PX - Chief complaint Chief Complaint: General - History obtained from History obtained from: Patient - Additonal information Additional information: 20-year-old woman presents with bilateral neck pain over the past month, that starts at nighttime when she rocks back and forth, worsening in the morning upon waking. Pain is worse with range of motion of the head and with pressing on the neck, aching quality, gradual in onset and nonworsening. Denies weakness or numbness, traumatic injury, shoulder pain.Denies fevers.No focal neurological deficits Review of Systems Constitutional: denies: Fever, Chills Eyes: denies: Loss of vision Ears: denies: Ear pain GI: denies: Nausea Skin: denies: Lesions, Abrasion (s) Musculoskeletal: reports: Neck pain. denies: Back pain Neurologic: denies: Focal weakness, Numbness, Headache, Head injury, LOC PD PAST MEDICAL HISTORY - Past Medical History Past Medical History: Yes Cardiovascular: Other Respiratory: None Neuro: Other Endocrine/Autoimmune: None GI: None STONE RUBBER: None : None HEENT: None Psych: Schizophrenia, ADD/ADHD, Other Musculoskeletal: None Derm: None - Past Surgical History Past Surgical History: No - Present Medications Home Medications: Ambulatory Orders Medication Instructions Recorded Confirmed ARIPiprazole [Aripiprazole] 20 mg PO QPM 05/20/20 02/06/21 Acetaminophen [Tylenol Extra 500 mg PO DAILY PRN 05/20/20 02/06/21 Strength] Buspirone HCl 10 mg PO TID 05/20/20 02/06/21 Desvenlafaxine Succinate 100 mg PO DAILY 05/20/20 02/06/21 [Desvenlafaxine Succinate ER] Fludrocortisone [Florinef] 2 tab PO DAILY 05/20/20 02/06/21 Ibuprofen 200 mg PO DAILY PRN 05/20/20 02/06/21 Midodrine HCl 5 mg PO DAILY 05/20/20 02/06/21 Cetirizine HCl 10 mg PO DAILY 07/13/20 02/06/21 LORazepam [Ativan] 1 mg PO ONCE PRN #14 tablet 01/16/21 02/06/21 Diphenhydramine HCl [Benadryl] 50 mg PO QPM PRN 15 Days #15 tab 05/08/21 Lisdexamfetamine Dimesylate 10 mg PO DAILY 02/06/21 02/06/21 [Vyvanse] - Allergies Allergies/Adverse Reactions: Allergies Allergy/AdvReac Type Severity Reaction Status Date / Time Latex, Natural Rubber Allergy Itching Verified 02/06/21 10:09 walnut Allergy Unknown Verified 02/06/21 10:09 - Social History Does the pt smoke?: No Smoking Status: Never smoker Does the pt drink ETOH?: Yes Does the pt have substance abuse?: No - Immunizations Immunizations are current?: Yes - POLST Patient has POLST: No PD ED PE NORMAL - Vitals Vital signs reviewed: Yes - General General: Alert and oriented X 3, No acute distress, Well developed/nourished - HEENT HEENT: Atraumatic, PERRL, EOMI - Neck Neck: Supple, no meningeal sign, No bony TTP - Derm Derm: Normal color, Warm and dry - Extremities Extremities: No deformity, Normal ROM s pain, Other (2+ bilateral radial pulses. Normal strength and sensation.) Results - Vitals Vitals: Vital Signs - 24 hr 02/06/21 10:06 Temperature 35.9 C L Heart Rate 92 Respiratory 16 Rate Blood Pressure 124/81 H O2 Saturation 100 Oxygen O2 Source Room air PD MEDICAL DECISION MAKING - ED course ED course: 20-year-old woman presents with chronic neck pain that is nonworsening. Patient will follow up with her primary doctor on the . Return precautions given. Departure - Departure Disposition: 01 Home, Self Care Clinical Impression: Chronic neck pain Condition: Good Instructions: ED Neck Pain No Trauma Prescriptions: Diphenhydramine HCl [Benadryl] 50 mg PO QPM PRN 15 Days #15 tab PRN Reason: Pain Comments: You are seen in the emergency department for neck pain. Please follow-up with your primary doctor for your appointment on the 26. Return to the emergency department if you have any new or worsening symptoms or other concerns.
[2021-02-06 10:47] VITALS: BP 111/83
== END 2021-02-06 10:46 | disposition home or self-care (01) ==
LOC: EDUNIT# → ED 09:59
DX: M54.2 Cervicalgia (principal); F20.9 Schizophrenia, unspecified; F90.9 Attention-deficit hyperactivity disorder, unspecified type; Z79.899 Other long term (current) drug therapy
CPT/HCPCS: 96372; 99282; 99283

== ENCOUNTER 2021-05-23 10:03 | Emergency (ER) | payer MEDICAID ==
[2021-05-23 10:14] VITALS: BP 112/74
[2021-05-23 10:56] LABS: BILIRUBIN,URINE NEGATIVE (NEGATIVE); GLUCOSE, URINE (UA) NEGATIVE (NEGATIVE); KETONES,URINE (UA) NEGATIVE (NEGATIVE); LEUKOCYTE ESTERASE, URINE NEGATIVE (NEGATIVE); NITRITE,URINE NEGATIVE (NEGATIVE); OCCULT BLOOD,URINE NEGATIVE (NEGATIVE); PROTEIN,URINE NEGATIVE (NEGATIVE); UROBILINOGEN,URINE 0.2 (NORMAL) E.U./dL (NORMAL)
[2021-05-23 10:58] LABS: CLARITY,URINE CLEAR (CLEAR); HCG UR QUAL NEGATIVE
--- NOTE | 2021-05-23 11:19 | ED Physician Documentation ---
PD HPI FEMALE - Stated complaint Stated Complaint: FEMALE - Chief complaint Chief Complaint: General - History obtained from History obtained from: Patient - History of Present Illness Timing - onset: How many days ago (2) Timing - duration: Days (2) Timing - details: Gradual onset, Still present Associated symptoms: Genital sore/lesion, Dysuria, Urinary frequency Contributing factors: Condoms, Sexually active. No: Similar symptoms before: Diagnosis (std) Recently seen: Not recently seen - Additional information Additional information: 21-year-old female with a history of developmental delay has a caregiver here with her today and she has noted some urinary urgency and dysuria as well as a small blistering sore above her clitoris. She states that this popped after she wiped it and the area is just red. She has had something similar to this last year and at that time did not have a urinary tract infection and she was treated for STD. She states that she does not suspect STD today and she has not had intercourse for 2 months. She states that she has a single partner. She has never been diagnosed with herpes. Review of Systems Constitutional: denies: Fever Eyes: denies: Decreased vision Ears: denies: Ear pain Nose: denies: Congestion Throat: denies: Sore throat Cardiac: denies: Chest pain / pressure Respiratory: denies: Dyspnea, Cough GI: denies: Abdominal Pain, Nausea, Vomiting : reports: Dysuria, Frequency. denies: Hematuria, Discharge Skin: reports: Lesions Musculoskeletal: denies: Neck pain, Back pain, Extremity pain Neurologic: denies: Generalized weakness, Focal weakness, Numbness PD PAST MEDICAL HISTORY - Past Medical History Cardiovascular: Other Respiratory: None Neuro: Other Endocrine/Autoimmune: None GI: None MATERIAL ASSEMBLER: None : None HEENT: None Psych: Schizophrenia, ADD/ADHD, Other Musculoskeletal: None Derm: None - Past Surgical History Past Surgical History: No - Present Medications Home Medications: Ambulatory Orders Medication Instructions Recorded Confirmed ARIPiprazole [Aripiprazole] 20 mg PO QPM 05/20/20 02/06/21 Acetaminophen [Tylenol Extra 500 mg PO DAILY PRN 05/20/20 02/06/21 Strength] Buspirone HCl 10 mg PO TID 05/20/20 02/06/21 Desvenlafaxine Succinate 100 mg PO DAILY 05/20/20 02/06/21 [Desvenlafaxine Succinate ER] Fludrocortisone [Florinef] 2 tab PO DAILY 05/20/20 02/06/21 Ibuprofen 200 mg PO DAILY PRN 05/20/20 02/06/21 Midodrine HCl 5 mg PO DAILY 05/20/20 02/06/21 Cetirizine HCl 10 mg PO DAILY 07/13/20 02/06/21 LORazepam [Ativan] 1 mg PO ONCE PRN #14 tablet 01/16/21 02/06/21 Lisdexamfetamine Dimesylate 10 mg PO DAILY 02/06/21 02/06/21 [Vyvanse] diphenhydrAMINE HCL [Benadryl] 50 mg PO QPM PRN 15 Days #15 tab 02/06/21 Valacyclovir HCl [Valtrex] 1,000 mg PO TID #21 tablet 05/23/21 - Allergies Allergies/Adverse Reactions: Allergies Allergy/AdvReac Type Severity Reaction Status Date / Time Latex, Natural Rubber Allergy Itching Verified 05/23/21 10:14 walnut Allergy Unknown Verified 05/23/21 10:14 - Social History Does the pt smoke?: No Smoking Status: Never smoker Does the pt drink ETOH?: Yes Does the pt have substance abuse?: No - Immunizations Immunizations are current?: Yes - POLST Patient has POLST: No PD ED PE NORMAL - Vitals Vital signs reviewed: Yes (Normal) - General General: Alert and oriented X 3, No acute distress, Well developed/nourished - HEENT HEENT: Atraumatic, PERRL, EOMI - Cardiac Cardiac: RRR, No murmur - Respiratory Respiratory: No respiratory distress, Clear bilaterally - Abdomen Abdomen: Soft, Non tender - Female Female : Deferred (The patient requested the nurse perform any examination as she is uncomfortable with a male examination.) - Back Back: No CVA TTP, No spinal TTP - Derm Derm: Normal color, Warm and dry, No rash - Extremities Extremities: No deformity, No edema - Neuro Neuro: Alert and oriented X 3, network firewall engineer 2-12 intact, No motor deficit, No sensory deficit, Normal speech Eye Opening: Spontaneous Motor: Obeys Commands Verbal: Oriented GCS Score: 15 - Psych Psych: Normal mood, Normal affect Results - Vitals Vitals: Vital Signs - 24 hr 05/23/21 10:08 Temperature 36.4 C L Heart Rate 74 Respiratory 13 Rate Blood Pressure 112/74 O2 Saturation 100 Oxygen O2 Source Room air - Labs Labs: Laboratory Tests 05/23/21 10:40 Urine Color YELLOW Urine Clarity CLEAR Urine pH 6.0 Ur Specific [place] 1.025 Urine Protein NEGATIVE Urine Glucose (UA) NEGATIVE Urine Ketones NEGATIVE Urine Occult Blood NEGATIVE Urine Nitrite NEGATIVE Urine Bilirubin NEGATIVE Urine Urobilinogen 0.2 (NORMAL) Ur Leukocyte Esterase NEGATIVE Ur Microscopic Review NOT INDICATED Urine Culture Comments NOT INDICATED Urine HCG, Qual NEGATIVE PD MEDICAL DECISION MAKING - ED course Complexity details: reviewed old records, reviewed results, re-evaluated patient, considered differential, d/w patient, d/w family ED course: 21-year-old female with a history of developmental delay has a sore above her clitoris and a prior history of a similar incident about 1 year ago. I was not able to examine the patient as she was shy about having a male examiner. The nurse did do examination and describes an area of dried skin above the clitoris with minimal erythema. We have obtained serology for HSV as a send out lab and today we will provide empiric treatment for HSV. I discussed this with the patient she is 2 days into her symptoms and would benefit from treatment. I have asked the patient to follow-up with [facility] should she have persistence or worsening of her symptoms despite treatment. [place] [facility] [place] [place] of her serology for HSV. Departure - Departure Disposition: 01 Home, Self Care Clinical Impression: Genital HSV Qualifiers: Herpes simplex infection site: vulvovaginitis Qualified Code(s): A60.04 - Herpesviral vulvovaginitis Condition: Stable Instructions: ED Herpes Simplex Virus Type 2 Follow-Up: Gaurav Morales ARNP [Primary Care Provider] - [facility] [Provider Group] Prescriptions: Valacyclovir HCl [Valtrex] 1,000 mg PO TID #21 tablet Comments: Today your symptoms are consistent with the possibility of an HSV infection and we have drawn some blood that will give us information about your possible exposure. You will need to follow-up with Gaurav Morales regarding the results of this blood test. In the meantime we are providing empiric treatment for HSV. Take the medication as prescribed and if you do not have improvement or you have worsening of your symptoms follow-up with the MATERIAL ASSEMBLER doctor at [facility].
== END 2021-05-23 12:13 | disposition home or self-care (01) ==
LOC: ED 10:03
DX: A60.04 Herpesviral vulvovaginitis (principal); F20.9 Schizophrenia, unspecified; F90.9 Attention-deficit hyperactivity disorder, unspecified type; Z79.899 Other long term (current) drug therapy
CPT/HCPCS: 36415; 81001; 81003; 81025; 86695; 86696; 87086; 99283

== ENCOUNTER 2021-06-05 10:18 | Outpatient (CLI) | payer MEDICAID | END 2021-06-05 10:19 | disposition critical access hospital (66) | LOC: EMS 10:18 | DX: R56.9 Unspecified convulsions (principal) | CPT/HCPCS: A0425; A0429; A0999 ==

== ENCOUNTER 2021-06-05 10:39 | Emergency (ER) | payer MEDICAID ==
[2021-06-05] MEDS ORDERED: diphenhydrAMINE INJ 50 MG/ML VIAL IVP STA (10:46)
[2021-06-05] MEDS ORDERED: LORazepam 2 MG/ML VIAL IVP STA (10:46)
[2021-06-05 11:06] LABS: BASOPHILS % (AUTO) 0.8 %; EOSINOPHILS # (AUTO) 0.2 10^3/uL (0.0-0.7); EOSINOPHILS % (AUTO) 3.7 %; HCT - HEMATOCRIT 35.6 % (37.0-47.0); HGB - HEMOGLOBIN 12.5 g/dL (12.0-16.0); LYMPHOCYTES # (AUTO) 1.4 10^3/uL (1.5-3.5); MEAN CORPUSCULAR HEMOGLOBIN 34.5 pg (27.0-31.0); MEAN CORPUSCULAR HGB CONC 35.1 g/dL (32.0-36.0); MEAN CORPUSCULAR VOLUME 98.3 fL (81.0-99.0); MEAN PLATELET VOLUME 10.7 fL (7.9-10.8); MONOCYTES # (AUTO) 0.4 10^3/uL (0.0-1.0); MONOCYTES % (AUTO) 8.5 %; NEUTROPHILS # (AUTO) 2.8 10^3/uL (1.5-6.6); NEUTROPHILS % (AUTO) 58.8 %; PLT - PLATELET COUNT 267 10^3/uL (130-450); RED BLOOD COUNT 3.62 10^6/uL (4.20-5.40); RED CELL DISTRIBUTION WIDTH 13.2 % (12.0-15.0); WHITE BLOOD COUNT 4.8 x10^3/uL (4.8-10.8)
[2021-06-05 11:22] LABS: ACETAMINOPHEN < 10 ug/mL (10-30); ALBUMIN 4.3 g/dL (3.2-5.5); ALBUMIN/GLOBULIN RATIO 1.9 (1.0-2.2); ALKALINE PHOSPHATASE 70 IU/L (42-121); ALT ALANINE AMINOTRANSFERASE 12 IU/L (10-60); AST ASPARTATE AMINOTRANSFERASE 16 IU/L (10-42); BILIRUBIN,TOTAL 0.7 mg/dL (0.2-1.0); BUN - BLOOD UREA NITROGEN 12 mg/dL (6-20); CALCIUM 9.2 mg/dL (8.5-10.3); CARBON DIOXIDE - CO2 26 mmol/L (21-32); CHLORIDE 108 mmol/L (101-111); CREATININE 0.8 mg/dL (0.4-1.0); ETOH - ETHANOL < 5.0 mg/dL; GFR - MDRD 91 (>89); GLUCOSE 96 mg/dL (70-100); LIPASE 28 U/L (22-51); POTASSIUM 3.5 mmol/L (3.5-5.0); SALICYLATE < 6.0 mg/dL; SODIUM 143 mmol/L (135-145); TOTAL PROTEIN 6.6 g/dL (6.7-8.2)
[2021-06-05] MEDS ORDERED: SODIUM CHLORIDE 0.9% 1,000 ML IV STA (12:22)
[2021-06-05 13:05] LABS: MUDS CUTOFF CONCENTRATIONS CUTOFF CONC BELOW:
[2021-06-05 13:22] LABS: BILIRUBIN,URINE NEGATIVE (NEGATIVE); GLUCOSE, URINE (UA) NEGATIVE (NEGATIVE); KETONES,URINE (UA) TRACE mg/dL (NEGATIVE); LEUKOCYTE ESTERASE, URINE TRACE (NEGATIVE); NITRITE,URINE NEGATIVE (NEGATIVE); OCCULT BLOOD,URINE NEGATIVE (NEGATIVE); PH,URINE 6.5 PH (5.0-7.5); PROTEIN,URINE NEGATIVE (NEGATIVE); UROBILINOGEN,URINE 0.2 (NORMAL) E.U./dL (NORMAL)
[2021-06-05 13:25] LABS: CLARITY,URINE CLEAR (CLEAR); HCG UR QUAL NEGATIVE
[2021-06-05] MEDS ORDERED: traZODone 50 MG TABLET PO STA (13:39)
[2021-06-05 13:43] LABS: BACTERIA,URINE Few /HPF (None Seen); MUCUS,URINE Few Strands; RBC,URINE 0-5 /HPF (0-5); SQUAMOUS EPITHELIAL CELL,UR MANY Squamous (<= Few)
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
[2021-06-05 14:26] VITALS: BP 115/77
[2021-06-05 14:39] LABS: AMPHETAMINE SCREEN,URINE POSITIVE (NEGATIVE); BARBITURATE SCREEN,UR NEGATIVE (NEGATIVE); BENZODIAZEPINES SCREEN, URINE POSITIVE (NEGATIVE); COCAINE SCREEN URINE NEGATIVE (NEGATIVE); METHADONE SCREEN, URINE NEGATIVE (NEGATIVE); METHAMPHETAMINES SCREEN, URINE NEGATIVE (NEGATIVE); OPIATE SCREEN, URINE NEGATIVE (NEGATIVE); OXYCODONE SCREEN, URINE NEGATIVE (NEGATIVE); PROPOXYPHENE SCREEN, URINE NEGATIVE (NEGATIVE); THC CANNABINOID SCREEN, URINE NEGATIVE (NEGATIVE); TRICYCLIC ANTIDEPRESSANT,URINE NEGATIVE (NEGATIVE)
== END 2021-06-05 14:27 | disposition home or self-care (01) ==
LOC: EDUNIT# → ED 10:39
DX: R56.9 Unspecified convulsions (principal); F43.9 Reaction to severe stress, unspecified; F41.0 Panic disorder [episodic paroxysmal anxiety]; G47.00 Insomnia, unspecified
CPT/HCPCS: 36415; 80053; 80306; 80307; 80320; 80329; 81001; 81025; 83690; 84443; 85025; 96374; 96375; 99283; 99284; A9270; J1200; J2060; 81003; 87086

== ENCOUNTER 2021-08-17 23:18 | Outpatient (CLI) | payer MEDICAID | END 2021-08-17 23:19 | disposition critical access hospital (66) | LOC: EMS 23:18 | DX: R45.851 Suicidal ideations (principal) | CPT/HCPCS: A0425; A0429; A0999 ==

== ENCOUNTER 2021-08-17 23:36 | Emergency (ER) | payer MEDICAID ==
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
[2021-08-18] MEDS ORDERED: traZODone 50 MG TABLET PO STA (00:03)
[2021-08-18] MEDS ORDERED: busPIRone 5 MG TABLET PO STA (00:03)
[2021-08-18 00:13] LABS: BASOPHILS % (AUTO) 0.4 %; EOSINOPHILS # (AUTO) 0.3 10^3/uL (0.0-0.7); EOSINOPHILS % (AUTO) 3.6 %; HGB - HEMOGLOBIN 13.1 g/dL (12.0-16.0); LYMPHOCYTES # (AUTO) 2.2 10^3/uL (1.5-3.5); LYMPHOCYTES % (AUTO) 29.2 %; MEAN CORPUSCULAR HEMOGLOBIN 34.2 pg (27.0-31.0); MEAN CORPUSCULAR HGB CONC 34.5 g/dL (32.0-36.0); MEAN CORPUSCULAR VOLUME 99.2 fL (81.0-99.0); MEAN PLATELET VOLUME 11.7 fL (7.9-10.8); MONOCYTES # (AUTO) 0.7 10^3/uL (0.0-1.0); MONOCYTES % (AUTO) 9.2 %; NEUTROPHILS # (AUTO) 4.3 10^3/uL (1.5-6.6); NEUTROPHILS % (AUTO) 57.3 %; PLT - PLATELET COUNT 304 10^3/uL (130-450); RED BLOOD COUNT 3.83 10^6/uL (4.20-5.40); RED CELL DISTRIBUTION WIDTH 12.3 % (12.0-15.0); WHITE BLOOD COUNT 7.5 x10^3/uL (4.8-10.8)
[2021-08-18 00:29] LABS: ACETAMINOPHEN < 10 ug/mL (10-30); ALBUMIN 4.3 g/dL (3.2-5.5); ALBUMIN/GLOBULIN RATIO 1.7 (1.0-2.2); ALKALINE PHOSPHATASE 67 IU/L (42-121); ALT ALANINE AMINOTRANSFERASE 13 IU/L (10-60); AST ASPARTATE AMINOTRANSFERASE 17 IU/L (10-42); BILIRUBIN,TOTAL 0.2 mg/dL (0.2-1.0); BUN - BLOOD UREA NITROGEN 19 mg/dL (6-20); CALCIUM 9.8 mg/dL (8.5-10.3); CARBON DIOXIDE - CO2 26 mmol/L (21-32); CHLORIDE 101 mmol/L (101-111); CREATININE 0.8 mg/dL (0.4-1.0); ETOH - ETHANOL < 5.0 mg/dL; GFR - MDRD 91 (>89); GLUCOSE 92 mg/dL (70-100); LIPASE 33 U/L (22-51); POTASSIUM 4.8 mmol/L (3.5-5.0); SALICYLATE < 6.0 mg/dL; SODIUM 137 mmol/L (135-145); TOTAL PROTEIN 6.9 g/dL (6.7-8.2)
[2021-08-18] MEDS ORDERED: TETANUS/DIPHTHERIA/PERTUSSIS 0.5 ML SYRINGE IM ONE (00:33)
[2021-08-18] MEDS ORDERED: OLANZapine ODT 5 MG TABLET TL ONE (00:35)
[2021-08-18 01:29] LABS: BILIRUBIN,URINE NEGATIVE (NEGATIVE); GLUCOSE, URINE (UA) NEGATIVE (NEGATIVE); KETONES,URINE (UA) NEGATIVE (NEGATIVE); LEUKOCYTE ESTERASE, URINE SMALL (NEGATIVE); MUDS CUTOFF CONCENTRATIONS CUTOFF CONC BELOW:; NITRITE,URINE NEGATIVE (NEGATIVE); OCCULT BLOOD,URINE SMALL (NEGATIVE); PROTEIN,URINE NEGATIVE (NEGATIVE); UROBILINOGEN,URINE 0.2 (NORMAL) E.U./dL (NORMAL)
[2021-08-18 01:31] LABS: CLARITY,URINE HAZY (CLEAR); HCG UR QUAL NEGATIVE
[2021-08-18 01:36] LABS: SQUAMOUS EPITHELIAL CELL,UR MOD Squamous (<= Few)
[2021-08-18 01:37] LABS: BACTERIA,URINE Few /HPF (None Seen)
[2021-08-18 01:39] LABS: AMPHETAMINE SCREEN,URINE NEGATIVE (NEGATIVE); BARBITURATE SCREEN,UR NEGATIVE (NEGATIVE); BENZODIAZEPINES SCREEN, URINE NEGATIVE (NEGATIVE); COCAINE SCREEN URINE NEGATIVE (NEGATIVE); METHADONE SCREEN, URINE NEGATIVE (NEGATIVE); METHAMPHETAMINES SCREEN, URINE NEGATIVE (NEGATIVE); OPIATE SCREEN, URINE NEGATIVE (NEGATIVE); OXYCODONE SCREEN, URINE NEGATIVE (NEGATIVE); PROPOXYPHENE SCREEN, URINE NEGATIVE (NEGATIVE); THC CANNABINOID SCREEN, URINE POSITIVE (NEGATIVE); TRICYCLIC ANTIDEPRESSANT,URINE NEGATIVE (NEGATIVE)
[2021-08-18 01:42] LABS: B. PARAPERTUSSIS- RESP PCR PAN NOT DETECTED; B. PERTUSSIS- RESP PCR PANEL NOT DETECTED; C. PNEUMONIAE- RESP PCR PANEL NOT DETECTED; CORONAVIRUS 229E-RESP PCR NOT DETECTED; CORONAVIRUS HKU1-RESP PCR NOT DETECTED; CORONAVIRUS NL63-RESP PCR NOT DETECTED; CORONAVIRUS OC43-RESP PCR NOT DETECTED; HUMAN METAPNEUMOVIRUS NOT DETECTED; INFLUENZA A- RESP PCR PANEL NOT DETECTED; INFLUENZA B - RESP PCR PANEL NOT DETECTED; M. PNEUMONIAE- RESP PCR PANEL NOT DETECTED; PARAINFLUENZA VIRUS 1 NOT DETECTED; PARAINFLUENZA VIRUS 2 NOT DETECTED; PARAINFLUENZA VIRUS 3 NOT DETECTED; PARAINFLUENZA VIRUS 4 NOT DETECTED; RHINOVIRUS/ENTEROVIRUS NOT DETECTED; RSV- RESP PCR PANEL NOT DETECTED; SARS-CoV-2 -RESP PCR PANEL NOT DETECTED
[2021-08-18] MEDS ORDERED: BACITRACIN ZINC OINT 1 PACKET TOP STA (04:08)
[2021-08-18 04:15] VITALS: BP 110/60
== END 2021-08-18 04:18 | disposition home or self-care (01) ==
LOC: ED 23:36
DX: F32.A Depression, unspecified (principal); F20.9 Schizophrenia, unspecified; Z20.822 Contact with and (suspected) exposure to COVID-19
CPT/HCPCS: 0202U; 36415; 80053; 80306; 80307; 80320; 80329; 81001; 81025; 83690; 84443; 85025; 90471; 90715; 93005; 99284; 99285; A9270; 81003; 87086

== ENCOUNTER 2021-09-06 14:15 | Outpatient (CLI) | payer MEDICAID | END 2021-09-06 14:16 | disposition EMS.NT | LOC: EMS 14:15 | DX: F41.0 Panic disorder [episodic paroxysmal anxiety] (principal) ==

== ENCOUNTER 2021-10-05 14:01 | Outpatient (CLI) | payer MEDICAID | END 2021-10-05 14:02 | disposition EMS.NT | LOC: EMS 14:01 | DX: R53.1 Weakness (principal); R05.9 Cough, unspecified ==

== ENCOUNTER 2021-11-10 16:47 | Outpatient (CLI) | payer MEDICAID | END 2021-11-10 16:48 | disposition critical access hospital (66) | LOC: EMS 16:47 | DX: R44.1 Visual hallucinations (principal); R44.0 Auditory hallucinations | CPT/HCPCS: A0425; A0429; A0999 ==

== ENCOUNTER 2021-11-10 17:12 | Emergency (ER) | payer MEDICAID ==
[2021-11-10 17:55] LABS: BASOPHILS % (AUTO) 0.6 %; EOSINOPHILS # (AUTO) 0.1 10^3/uL (0.0-0.7); EOSINOPHILS % (AUTO) 1.1 %; HCT - HEMATOCRIT 40.2 % (37.0-47.0); HGB - HEMOGLOBIN 13.9 g/dL (12.0-16.0); LYMPHOCYTES # (AUTO) 1.5 10^3/uL (1.5-3.5); LYMPHOCYTES % (AUTO) 23.2 %; MEAN CORPUSCULAR HEMOGLOBIN 33.7 pg (27.0-31.0); MEAN CORPUSCULAR HGB CONC 34.6 g/dL (32.0-36.0); MEAN CORPUSCULAR VOLUME 97.3 fL (81.0-99.0); MEAN PLATELET VOLUME 11.8 fL (7.9-10.8); MONOCYTES # (AUTO) 0.4 10^3/uL (0.0-1.0); MONOCYTES % (AUTO) 6.7 %; NEUTROPHILS # (AUTO) 4.5 10^3/uL (1.5-6.6); NEUTROPHILS % (AUTO) 68.2 %; PLT - PLATELET COUNT 291 10^3/uL (130-450); RED BLOOD COUNT 4.13 10^6/uL (4.20-5.40); RED CELL DISTRIBUTION WIDTH 12.7 % (12.0-15.0); WHITE BLOOD COUNT 6.5 x10^3/uL (4.8-10.8)
[2021-11-10 18:09] LABS: ACETAMINOPHEN < 10 ug/mL (10-30); ALBUMIN 4.2 g/dL (3.2-5.5); ALBUMIN/GLOBULIN RATIO 1.4 (1.0-2.2); ALKALINE PHOSPHATASE 60 IU/L (42-121); ALT ALANINE AMINOTRANSFERASE 13 IU/L (10-60); AST ASPARTATE AMINOTRANSFERASE 27 IU/L (10-42); BILIRUBIN,TOTAL 0.6 mg/dL (0.2-1.0); BUN - BLOOD UREA NITROGEN 22 mg/dL (6-20); CALCIUM 9.6 mg/dL (8.5-10.3); CARBON DIOXIDE - CO2 23 mmol/L (21-32); CHLORIDE 102 mmol/L (101-111); CREATININE 0.8 mg/dL (0.4-1.0); ETOH - ETHANOL < 5.0 mg/dL; GFR - MDRD 91 (>89); GLUCOSE 79 mg/dL (70-100); LIPASE 33 U/L (22-51); POTASSIUM 3.8 mmol/L (3.5-5.0); SALICYLATE < 6.0 mg/dL; SODIUM 136 mmol/L (135-145); TOTAL PROTEIN 7.3 g/dL (6.7-8.2)
--- NOTE | 2021-11-10 18:21 | ED Physician Documentation ---
History of Present Illness - Stated complaint Stated Complaint: MHE - Chief complaint Chief Complaint: MHE - Additonal information Additional information: 21-year-old female is brought in to the emergency department for evaluation of worsening auditory and visual hallucinations. She is not able to specifically say what she sees or hears but just calls them voices. She states that she answers them in her head. Patient is very slow to respond to questions often taking 10 to 15 seconds to respond but she will answer. EMS was called to her house because mom had reported that she had not spoken to patient for 1 week. The patient tells me she has a caregiver that comes to her home to give her her medications twice daily. Patient denies that she is missing any medicines. Per EMS mom had reported that the patient was hospitalized for 4 months left last year after a similar episode of worsening hallucinations. Past medical history is most significant for hypertension, depression, alcohol syndrome as well as pseudoseizures. Review of Systems Constitutional: denies: Fever, Chills Eyes: reports: Reviewed and negative Ears: reports: Reviewed and negative Throat: reports: Reviewed and negative Cardiac: denies: Chest pain / pressure, Palpitations, Pedal edema, Calf pain Respiratory: denies: Dyspnea, Cough GI: reports: Reviewed and negative : reports: Reviewed and negative Musculoskeletal: reports: Reviewed and negative Neurologic: reports: Reviewed and negative Psychiatric: reports: Depressed, Hallucinations. denies: Suicidal PD PAST MEDICAL HISTORY - Past Medical History Past Medical History: Yes Cardiovascular: Other Respiratory: None Neuro: Other Endocrine/Autoimmune: None GI: None PEOPLESOFT CONSULTANT: None : None HEENT: None Psych: Schizophrenia, ADD/ADHD, Other Musculoskeletal: None Derm: None - Past Surgical History Past Surgical History: No - Present Medications Home Medications: Ambulatory Orders Medication Instructions Recorded Confirmed Buspirone HCl 15 mg PO TID 05/20/20 11/10/21 Desvenlafaxine Succinate 100 mg PO DAILY 05/20/20 11/10/21 [Desvenlafaxine Succinate ER] Fludrocortisone [Florinef] 0.2 mg PO DAILY 05/20/20 11/10/21 Midodrine HCl 5 mg PO DAILY 05/20/20 11/10/21 Cetirizine HCl 10 mg PO DAILY 07/13/20 11/10/21 Lisdexamfetamine Dimesylate 20 mg PO DAILY 02/06/21 11/10/21 [Vyvanse] traZODone [Desyrel] 50 mg PO HS #10 tablet 06/05/21 11/10/21 [place] Carbonate 300 mg PO QPM 08/18/21 11/10/21 Lumateperone Tosylate [Caplyta] 1 cap PO QPM 08/18/21 11/10/21 Cefpodoxime Proxetil [Vantin] 100 mg PO Q12H #14 tablet 11/10/21 - Allergies Allergies/Adverse Reactions: Allergies Allergy/AdvReac Type Severity Reaction Status Date / Time Latex, Natural Rubber Allergy Itching Verified 11/10/21 17:24 walnut Allergy Unknown Verified 11/10/21 17:24 - Social History Does the pt smoke?: No Smoking Status: Never smoker Does the pt drink ETOH?: Yes Does the pt have substance abuse?: No - Immunizations Immunizations are current?: Yes - POLST Patient has POLST: No PD ED PE NORMAL - General General: Alert and oriented X 3, No acute distress, Well developed/nourished - HEENT HEENT: Atraumatic, Moist mucous membranes - Neck Neck: Supple, no meningeal sign, No adenopathy - Cardiac Cardiac: RRR, No murmur - Abdomen Abdomen: Normal bowel sounds, Soft, Non tender, Non distended - Back Back: No CVA TTP, No spinal TTP - Derm Derm: Normal color, Warm and dry - Extremities Extremities: No deformity - Neuro Neuro: Alert and oriented X 3, 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 Good eye contact. Slow to respond verbally but answers questions appropriately. Endorses auditory and visual hallucinations but does not clarify the content. Denies self-harm or harm to others) Results - Vitals Vitals: Vital Signs - 24 hr 11/10/21 11/10/21 11/10/21 17:16 19:21 19:33 Temperature 36.9 C Heart Rate 97 Respiratory 18 16 16 Rate Blood Pressure 116/72 O2 Saturation 100 11/10/21 21:50 Temperature Heart Rate 90 Respiratory 15 Rate Blood Pressure 113/84 H O2 Saturation 99 Oxygen O2 Source Room air - Labs Labs: Laboratory Tests 11/10/21 11/10/21 11/10/21 17:46 17:46 17:46 WBC 6.5 RBC 4.13 L Hgb 13.9 Hct 40.2 MCV 97.3 MCH 33.7 H MCHC 34.6 RDW 12.7 Plt Count 291 MPV 11.8 H Neut # (Auto) 4.5 Lymph # (Auto) 1.5 Morris # (Auto) 0.4 Eos # (Auto) 0.1 Baso # (Auto) 0.0 Absolute Nucleated RBC 0.00 Nucleated RBC % 0.0 Sodium 136 Potassium 3.8 Chloride 102 Carbon Dioxide 23 Anion Gap 11.0 BUN 22 H Creatinine 0.8 Estimated GFR (MDRD) 91 Glucose 79 Calcium 9.6 Total Bilirubin 0.6 AST 27 ALT 13 Alkaline Phosphatase 60 Total Protein 7.3 Albumin 4.2 Globulin 3.1 Albumin/Globulin Ratio 1.4 Lipase 33 TSH 1.56 Urine Color Urine Clarity Urine pH Ur Specific [place] Urine Protein Urine Glucose (UA) Urine Ketones Urine Occult Blood Urine Nitrite Urine Bilirubin Urine Urobilinogen Ur Leukocyte Esterase Urine RBC Urine WBC Ur Squamous Epith Cells Urine Bacteria Ur Microscopic Review Urine Culture Comments Urine HCG, Qual Nasal Adenovirus (PCR) Nasal B. parapertussis DNA (PCR) Nasal Coronavir 229E PCR Nasal Coronavir HKU1 PCR Nasal Coronavir NL63 PCR Nasal Coronavir OC43 PCR Nasal Enterovir/Rhinovir PCR Nasal Influenza B PCR Nasal Influenza A PCR Nasal Parainfluen 1 PCR Nasal Parainfluen 2 PCR Nasal Parainfluen 3 PCR Nasal Parainfluen 4 PCR Nasal RSV (PCR) Nasal B.pertussis DNA PCR Nasal C.pneumoniae (PCR) Willie Human Metapneumo PCR Nasal M.pneumoniae (PCR) Nasal SARS-CoV-2 (PCR) Salicylates < 6.0 Urine Opiates Screen Ur Oxycodone Screen Urine Methadone Screen Ur Propoxyphene Screen Acetaminophen < 10 L Ur Barbiturates Screen Ur Tricyclics Screen Ur Phencyclidine Scrn Ur Amphetamine Screen U Methamphetamines Scrn U Benzodiazepines Scrn Urine Cocaine Screen U Cannabinoids Screen Ethyl Alcohol < 5.0 11/10/21 11/10/21 18:10 18:12 WBC RBC Hgb Hct MCV MCH MCHC RDW Plt Count MPV Neut # (Auto) Lymph # (Auto) Morris # (Auto) Eos # (Auto) Baso # (Auto) Absolute Nucleated RBC Nucleated RBC % Sodium Potassium Chloride Carbon Dioxide Anion Gap BUN Creatinine Estimated GFR (MDRD) Glucose Calcium Total Bilirubin AST ALT Alkaline Phosphatase Total Protein Albumin Globulin Albumin/Globulin Ratio Lipase TSH Urine Color YELLOW Urine Clarity SL. CLOUDY Urine pH 6.0 Ur Specific [place] >=1.030 H Urine Protein NEGATIVE Urine Glucose (UA) NEGATIVE Urine Ketones 15 H Urine Occult Blood NEGATIVE Urine Nitrite POSITIVE H Urine Bilirubin NEGATIVE Urine Urobilinogen 0.2 (NORMAL) Ur Leukocyte Esterase TRACE H Urine RBC 0-5 Urine WBC 11-25 H Ur Squamous Epith Cells RARE Squamous Urine Bacteria Many H Ur Microscopic Review INDICATED Urine Culture Comments INDICATED Urine HCG, Qual NEGATIVE Nasal Adenovirus (PCR) NOT DETECTED Nasal B. parapertussis DNA (PCR) NOT DETECTED Nasal Coronavir 229E PCR NOT DETECTED Nasal Coronavir HKU1 PCR NOT DETECTED Nasal Coronavir NL63 PCR NOT DETECTED Nasal Coronavir OC43 PCR NOT DETECTED Nasal Enterovir/Rhinovir PCR NOT DETECTED Nasal Influenza B PCR NOT DETECTED Nasal Influenza A PCR NOT DETECTED Nasal Parainfluen 1 PCR NOT DETECTED Nasal Parainfluen 2 PCR NOT DETECTED Nasal Parainfluen 3 PCR NOT DETECTED Nasal Parainfluen 4 PCR NOT DETECTED Nasal RSV (PCR) NOT DETECTED Nasal B.pertussis DNA PCR NOT DETECTED Nasal C.pneumoniae (PCR) NOT DETECTED Willie Human Metapneumo PCR NOT DETECTED Nasal M.pneumoniae (PCR) NOT DETECTED Nasal SARS-CoV-2 (PCR) NOT DETECTED Salicylates Urine Opiates Screen NEGATIVE Ur Oxycodone Screen NEGATIVE Urine Methadone Screen NEGATIVE Ur Propoxyphene Screen NEGATIVE Acetaminophen Ur Barbiturates Screen NEGATIVE Ur Tricyclics Screen NEGATIVE Ur Phencyclidine Scrn NEGATIVE Ur Amphetamine Screen POSITIVE H U Methamphetamines Scrn NEGATIVE U Benzodiazepines Scrn NEGATIVE Urine Cocaine Screen NEGATIVE U Cannabinoids Screen NEGATIVE Ethyl Alcohol PD MEDICAL DECISION MAKING - ED course Complexity details: reviewed results, re-evaluated patient, considered differential, d/w patient ED course: 21-year-old female presents the emergency department via EMS for a mental health evaluation. She reportedly has a past medical history that includes schizophrenia as well as alcohol syndrome. A caregiver comes to the bedside twice daily to give her her meds but she has been having increased psychosis. Screening labs today are most pertinently positive for amphetamines which patient denies. Patient does have a UA consistent with acute cystitis. I am unable to determine if the patient has symptoms though it is not felt to likely be contributing to her symptoms. However given acute psychosis patient will be treated with Vantin. First dose given today in the emergency department.She was seen by telepsychiatrist who does recommend Voluntary inpatient psychiatric stabilization. He will continue her home meds with the exception of the Vyvanse. He would also initiate Seroquel 50 mg twice daily. Pt will be signed otu to Dr. Carmen pending psych placement; SW in am if she boards overnight Departure - Departure Clinical Impression: Acute psychosis, Hallucinations, Cystitis Condition: Stable Record reviewed to determine appropriate education?: Yes Prescriptions: Cefpodoxime Proxetil [Vantin] 100 mg PO Q12H #14 tablet
[2021-11-10 18:25] LABS: MUDS CUTOFF CONCENTRATIONS CUTOFF CONC BELOW:
[2021-11-10 18:33] LABS: BILIRUBIN,URINE NEGATIVE (NEGATIVE); GLUCOSE, URINE (UA) NEGATIVE (NEGATIVE); KETONES,URINE (UA) 15 mg/dL (NEGATIVE); LEUKOCYTE ESTERASE, URINE TRACE (NEGATIVE); NITRITE,URINE POSITIVE (NEGATIVE); OCCULT BLOOD,URINE NEGATIVE (NEGATIVE); PROTEIN,URINE NEGATIVE (NEGATIVE); UROBILINOGEN,URINE 0.2 (NORMAL) E.U./dL (NORMAL)
[2021-11-10 18:37] LABS: CLARITY,URINE SL. CLOUDY (CLEAR); HCG UR QUAL NEGATIVE
[2021-11-10 18:50] LABS: BACTERIA,URINE Many /HPF (None Seen); RBC,URINE 0-5 /HPF (0-5); SQUAMOUS EPITHELIAL CELL,UR RARE Squamous (<= Few)
[2021-11-10 18:53] LABS: AMPHETAMINE SCREEN,URINE POSITIVE (NEGATIVE); BARBITURATE SCREEN,UR NEGATIVE (NEGATIVE); BENZODIAZEPINES SCREEN, URINE NEGATIVE (NEGATIVE); COCAINE SCREEN URINE NEGATIVE (NEGATIVE); METHADONE SCREEN, URINE NEGATIVE (NEGATIVE); METHAMPHETAMINES SCREEN, URINE NEGATIVE (NEGATIVE); OPIATE SCREEN, URINE NEGATIVE (NEGATIVE); OXYCODONE SCREEN, URINE NEGATIVE (NEGATIVE); PROPOXYPHENE SCREEN, URINE NEGATIVE (NEGATIVE); THC CANNABINOID SCREEN, URINE NEGATIVE (NEGATIVE); TRICYCLIC ANTIDEPRESSANT,URINE NEGATIVE (NEGATIVE)
[2021-11-10 19:54] LABS: B. PARAPERTUSSIS- RESP PCR PAN NOT DETECTED; B. PERTUSSIS- RESP PCR PANEL NOT DETECTED; C. PNEUMONIAE- RESP PCR PANEL NOT DETECTED; CORONAVIRUS 229E-RESP PCR NOT DETECTED; CORONAVIRUS HKU1-RESP PCR NOT DETECTED; CORONAVIRUS NL63-RESP PCR NOT DETECTED; CORONAVIRUS OC43-RESP PCR NOT DETECTED; HUMAN METAPNEUMOVIRUS NOT DETECTED; INFLUENZA A- RESP PCR PANEL NOT DETECTED; INFLUENZA B - RESP PCR PANEL NOT DETECTED; M. PNEUMONIAE- RESP PCR PANEL NOT DETECTED; PARAINFLUENZA VIRUS 1 NOT DETECTED; PARAINFLUENZA VIRUS 2 NOT DETECTED; PARAINFLUENZA VIRUS 3 NOT DETECTED; PARAINFLUENZA VIRUS 4 NOT DETECTED; RHINOVIRUS/ENTEROVIRUS NOT DETECTED; RSV- RESP PCR PANEL NOT DETECTED; SARS-CoV-2 -RESP PCR PANEL NOT DETECTED
[2021-11-10] MEDS: CEFPODOXIME PROXETIL 100 MG TABLET PO SCH (21:02)
[2021-11-10] MEDS: risperiDONE 0.25 MG TABLET PO SCH (21:47)
[2021-11-10] MEDS ORDERED: LITHIUM 150 MG CAPSULE PO SCH (23:00)
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
[2021-11-10] MEDS: QUEtiapine 25 MG TABLET PO SCH (23:52)
[2021-11-11] MEDS: busPIRone 5 MG TABLET PO SCH ×3 (06:11→21:17)
[2021-11-11] MEDS: CEFPODOXIME PROXETIL 100 MG TABLET PO SCH ×2 (09:45→21:17)
[2021-11-11] MEDS: QUEtiapine 25 MG TABLET PO SCH ×2 (09:45→21:17)
[2021-11-11] MEDS ORDERED: ACETAMINOPHEN 325 MG TABLET PO STA (09:51)
[2021-11-11] MEDS ORDERED: FLUDROCORTISONE 0.1 MG TABLET PO SCH (11:00)
--- NOTE | 2021-11-11 13:40 | ED Physician Documentation ---
ED Addendum - Addendum Addendum: 11/11/21 13:39 Patient has remained in the emergency department overnight. She has had worsening hallucinations which is what prompted her to come to the ER yesterday. She was seen by telepsych who did recommend voluntary inpatient hospitalization. However after being screened by social work, there is concerned that she may lack the capacity to make a voluntary psychiatric decision given her history of alcohol syndrome and developmental disc delay thus DCR has been dispatched to evaluate the patient to determine if she should be involuntarily detained or she has a capacity is such to make this decision. Patient was evaluated by DCR but was not found to meet the criteria for involuntary detainment. However as such social work has found a voluntary bed for psychiatric treatment in [place]. Appropriate IMScouting paperwork was completed. Patient will be transported via BLS. 11/11/21 14:25
[2021-11-11] MEDS ORDERED: LITHIUM ER 300 MG TABLET PO SCH (21:00)
[2021-11-11] MEDS: risperiDONE 0.25 MG TABLET PO SCH (21:18)
[2021-11-11 22:11] VITALS: BP 99/66
== END 2021-11-11 22:25 ==
LOC: EDUNIT# → ED 17:12
DX: N30.90 Cystitis, unspecified without hematuria (principal); F32.A Depression, unspecified; F23 Brief psychotic disorder; I10 Essential (primary) hypertension; Z20.822 Contact with and (suspected) exposure to COVID-19; Q86.0 Fetal alcohol syndrome (dysmorphic)
CPT/HCPCS: 0202U; 36415; 80053; 80306; 80307; 80320; 80329; 81001; 81025; 83690; 84443; 85025; 87077; 87086; 87181; 99283; 99285; A9270; G0425; Q3014; 81003

== ENCOUNTER 2023-03-08 14:44 | Emergency (ER) | payer MEDICAID ==
[2023-03-08 15:10] VITALS: BP 121/72
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
== END 2023-03-08 15:43 | disposition home or self-care (01) ==
LOC: ED 14:44
DX: S76.312A Strain of muscle, fascia and tendon of the posterior muscle group at thigh level, left thigh, initial encounter (principal); X58.XXXA Exposure to other specified factors, initial encounter; Z79.899 Other long term (current) drug therapy; Z91.040 Latex allergy status
CPT/HCPCS: 99281; 99283

== ENCOUNTER 2023-06-10 09:23 | Outpatient (CLI) | payer MEDICAID | END 2023-06-10 09:24 | disposition critical access hospital (66) | LOC: EMS 09:23 | DX: R55 Syncope and collapse (principal) | CPT/HCPCS: A0425; A0429; A0999 ==

== ENCOUNTER 2023-06-10 09:41 | Emergency (ER) | payer MEDICAID ==
[2023-06-10 10:02] VITALS: BP 101/75; O2SAT 94
[2023-06-10 10:10] LABS: BASOPHILS # (AUTO) 0.1 10^3/uL (0.0-0.1); BASOPHILS % (AUTO) 0.9 %; EOSINOPHILS # (AUTO) 0.1 10^3/uL (0.0-0.7); EOSINOPHILS % (AUTO) 1.8 %; HCT - HEMATOCRIT 38.2 % (37.0-47.0); HGB - HEMOGLOBIN 12.7 g/dL (12.0-16.0); LYMPHOCYTES # (AUTO) 1.4 10^3/uL (1.5-3.5); LYMPHOCYTES % (AUTO) 20.1 %; MEAN CORPUSCULAR HEMOGLOBIN 32.7 pg (27.0-31.0); MEAN CORPUSCULAR HGB CONC 33.2 g/dL (32.0-36.0); MEAN CORPUSCULAR VOLUME 98.5 fL (81.0-99.0); MEAN PLATELET VOLUME 11.4 fL (7.9-10.8); MONOCYTES # (AUTO) 0.5 10^3/uL (0.0-1.0); MONOCYTES % (AUTO) 7.3 %; NEUTROPHILS # (AUTO) 4.7 10^3/uL (1.5-6.6); NEUTROPHILS % (AUTO) 69.8 %; PLT - PLATELET COUNT 297 10^3/uL (130-450); RED BLOOD COUNT 3.88 10^6/uL (4.20-5.40); RED CELL DISTRIBUTION WIDTH 11.8 % (12.0-15.0); WHITE BLOOD COUNT 6.7 x10^3/uL (4.8-10.8)
[2023-06-10] MEDS ORDERED: SODIUM CHLORIDE 0.9% 1,000 ML IV STA (10:21)
[2023-06-10 10:23] LABS: ALBUMIN 4.4 g/dL (3.2-5.5); ALBUMIN/GLOBULIN RATIO 1.9 (1.0-2.2); ALKALINE PHOSPHATASE 78 IU/L (42-121); ALT ALANINE AMINOTRANSFERASE 8 IU/L (10-60); AST ASPARTATE AMINOTRANSFERASE 11 IU/L (10-42); BILIRUBIN,TOTAL 0.4 mg/dL (0.2-1.0); BUN - BLOOD UREA NITROGEN 4 mg/dL (6-20); CALCIUM 9.8 mg/dL (8.5-10.3); CARBON DIOXIDE - CO2 24 mmol/L (21-32); CHLORIDE 106 mmol/L (101-111); CREATININE 0.7 mg/dL (0.6-1.3); GFR - MDRD 104 (>89); GLUCOSE 121 mg/dL (74-104); LIPASE 15 U/L (11-82); POTASSIUM 3.7 mmol/L (3.5-4.5); SODIUM 137 mmol/L (135-145); TOTAL PROTEIN 6.7 g/dL (6.4-8.9)
--- NOTE | 2023-06-10 10:25 | ED Physician Documentation ---
PD HPI SYNCOPE - Stated complaint Stated Complaint: SYNCOPAL EPISODE - Chief complaint Chief Complaint: Neuro - History obtained from History obtained from: Patient, EMS - History of Present Illness Witnessed: Witnessed Timing - onset: Today Duration: Seconds Preceding symptoms: Vision changes, Light headed, Generalized weakness Associated symptoms: Seizure Contributing factors: Emotional upset Injury occurred: None Similar symptoms before: Diagnosis (POTS with syncope) Recently seen: Not recently seen - Additional information Additional information: Ning Tom is a 23-year-old female with a lifelong history of POTS. She is on Midodrine and Florinef for this. She usually drinks copious amounts of fluid. She cannot recall an event that she would have had decreased fluid intake or fluid loss. She denies diarrhea or vomiting states that she did not drink much fluid this morning. She felt that the incident this morning occurred because there are new employees at the [employer]. She states she does not do well with people and this was a new situation for her. She was not injured in her syncopal episode. She states this is similar to what she has had to happen multiple times. Review of Systems Constitutional: denies: Fever Eyes: denies: Decreased vision Ears: denies: Ear pain Nose: denies: Congestion Throat: denies: Sore throat Cardiac: denies: Chest pain / pressure Respiratory: denies: Dyspnea, Cough GI: denies: Abdominal Pain : denies: Dysuria, Frequency Skin: denies: Rash Musculoskeletal: denies: Neck pain, Back pain, Extremity pain Neurologic: reports: Syncope. 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 : None HEENT: None Psych: Schizophrenia, ADD/ADHD, Other Musculoskeletal: None Derm: None - Past Surgical History Past Surgical History: No - Present Medications Home Medications: Ambulatory Orders Medication Instructions Recorded Confirmed Buspirone HCl 15 mg PO TID 05/20/20 11/10/21 Desvenlafaxine Succinate 100 mg PO DAILY 05/20/20 11/10/21 [Desvenlafaxine Succinate ER] Fludrocortisone [Florinef] 0.2 mg PO DAILY 05/20/20 11/10/21 Midodrine HCl 5 mg PO DAILY 05/20/20 11/10/21 Cetirizine HCl 10 mg PO DAILY 07/13/20 11/10/21 Lisdexamfetamine Dimesylate 20 mg PO DAILY 02/06/21 11/10/21 [Vyvanse] traZODone [Desyrel] 50 mg PO HS #10 tablet 06/05/21 11/10/21 Lumateperone Tosylate [Caplyta] 1 cap PO QPM 08/18/21 11/10/21 Cefpodoxime Proxetil [Vantin] 100 mg PO Q12H #14 tablet 11/10/21 [place] ER [Lithobid] 300 mg PO QPM 11/11/21 11/11/21 - Allergies Allergies/Adverse Reactions: Allergies Allergy/AdvReac Type Severity Reaction Status Date / Time Latex, Natural Rubber Allergy Itching Verified 03/08/23 15:08 walnut Allergy Unknown Verified 03/08/23 15:08 - Social History Does the pt smoke?: No Smoking Status: Never smoker Does the pt drink ETOH?: Yes Does the pt have substance abuse?: No - Immunizations Immunizations are current?: Yes - POLST Patient has POLST: No PD ED PE NORMAL - Vitals Vital signs reviewed: Yes (normal ) - General General: Alert and oriented X 3, No acute distress, Well developed/nourished, Other (there is some delay observed ) - HEENT HEENT: Atraumatic, PERRL, EOMI - Neck Neck: Supple, no meningeal sign, No bony TTP - Cardiac Cardiac: RRR, No murmur - Respiratory Respiratory: No respiratory distress, Clear bilaterally - Abdomen Abdomen: Normal bowel sounds, Soft, Non tender, Non distended, No organomegaly - Back Back: No CVA TTP, No spinal TTP - Derm Derm: Normal color, Warm and dry, No rash - Extremities Extremities: No deformity, No edema - Neuro Neuro: Alert and oriented X 3, rag washer 2-12 intact, No motor deficit, No sensory deficit, Normal speech Eye Opening: Spontaneous Motor: Obeys Commands Verbal: Oriented GCS Score: 15 - Psych Psych: Normal mood, Normal affect Results - Vitals Vitals: Vital Signs - 24 hr 06/10/23 09:48 Temperature 36.9 C Heart Rate 74 Respiratory 19 Rate Blood Pressure 101/75 O2 Saturation 94 Oxygen O2 Source Room air - Labs Labs: Laboratory Tests 06/10/23 06/10/23 06/10/23 10:04 10:04 10:16 WBC 6.7 RBC 3.88 L Hgb 12.7 Hct 38.2 MCV 98.5 MCH 32.7 H MCHC 33.2 RDW 11.8 L Plt Count 297 MPV 11.4 H Neut # (Auto) 4.7 Lymph # (Auto) 1.4 L [place] # (Auto) 0.5 Eos # (Auto) 0.1 Baso # (Auto) 0.1 Absolute Nucleated RBC 0.00 Nucleated RBC % 0.0 Sodium 137 Potassium 3.7 Chloride 106 Carbon Dioxide 24 Anion Gap 7.0 BUN 4 L Creatinine 0.7 Estimated GFR (MDRD) 104 Glucose 121 H POC Whole Bld Glucose 125 H Calcium 9.8 Total Bilirubin 0.4 AST 11 ALT 8 L Alkaline Phosphatase 78 Troponin I High Sens < 2.3 L Total Protein 6.7 Albumin 4.4 Globulin 2.3 Albumin/Globulin Ratio 1.9 Lipase 15 Procedures - IVC sono (time) 1020 Bedside IVC sono: IVC measures (cm) (1.01), Dehydration (est > 1 liter deficit) PD Medical Decision Making - ED course Complexity details: reviewed old records, reviewed results, re-evaluated patient, considered differential, d/w patient, d/w family Reviewed Lab Results: We reviewed a complete blood count showing a white blood count of 6.7 normal hemoglobin hematocrit and platelets. Indices were unremarkable. Chemistries similarly unremarkable with normal electrolytes normal kidney and liver funct ion. High-sensitivity troponin negative. These benign-appearing laboratory results are consistent with the patient's known history of POTS and her presentation today. They did not otherwise contribute to specific diagnoses. ED course: 23-year-old female with a history of POTS since childhood does appear to have some developmental delay. She has a land lease information clerk who assists her with her needs and he presents to the emergency department as well. Today in the emergency department she is found to be dehydrated on interrogation of the IVC with POCUS. She could not explain how she ended up dehydrated. She felt the incident was likely due to to new employees at [employer] and her uncomfortableness with new things. We did administer saline to the patient. She felt well and wanted to go home. She has had these episodes a number of times previously her land lease information clerk will be certain that she is adequately hydrated. Departure - Departure Disposition: 01 Home, Self Care Clinical Impression: POTS (postural orthostatic tachycardia syndrome), Dehydration, Stress reaction Syncope Qualifiers: Syncope type: unspecified Qualified Code(s): R55 - Syncope and collapse Instructions: ED Stress React, ED Dehydration, ED Syncope Vasovagal Follow-Up: Gaurav Morales ARNP [Primary Care Provider] - Comments: Ning, today it looks like you had a fainting episode similar to what you have had previously. We did find today that you are dehydrated. We provided IV fluid and the recommendation is to drink additional fluids. A person with pots syndrome should drink about 3 quarts per day. Discharge Date/Time: 06/10/23 11:55
[2023-06-10 10:30] LABS: TROPONIN I HIGH SENSITIVITY < 2.3 ng/L (2.3-14.8)
== END 2023-06-10 11:55 | disposition home or self-care (01) ==
LOC: EDUNIT# → ED 09:41
DX: G90.A Postural orthostatic tachycardia syndrome [POTS] (principal); E86.0 Dehydration; R55 Syncope and collapse; F43.9 Reaction to severe stress, unspecified; Z79.899 Other long term (current) drug therapy; Z91.040 Latex allergy status
CPT/HCPCS: 36415; 80053; 83690; 84484; 85025; 93005; 96360; 99283

== ENCOUNTER 2024-05-10 15:09 | Outpatient (CLI) | payer MEDICAID | END 2024-05-10 23:59 | disposition EMS.NT | LOC: EMS 15:09 | DX: G90.A Postural orthostatic tachycardia syndrome [POTS] (principal) ==

== ENCOUNTER 2024-05-26 16:30 | Outpatient (CLI) | payer MEDICAID | END 2024-05-26 16:31 | disposition critical access hospital (66) | LOC: EMS 16:30 | DX: S51.812A Laceration without foreign body of left forearm, initial encounter (principal); X78.8XXA Intentional self-harm by other sharp object, initial encounter | CPT/HCPCS: A0425; A0429; A0999 ==

== ENCOUNTER 2024-05-26 16:50 | Emergency (ER) | payer MEDICAID ==
--- NOTE | 2024-05-26 17:06 | ED Physician Documentation ---
PD HPI MHE - Stated complaint Stated Complaint: MHE - Additional information Additional information: 24-year-old female who lives at adult family facility with history of alcohol syndrome, schizophrenia, ADHD presents emergency department for cut lewis to left forearm. Patient says that she is not having any suicidal homicidal ideation she says that she tends to cut when she is experiencing a lot of stress and has been experiencing a lot of stress with her roommate recently. Patient says that the caregiver at the adult family home had to call 911 because she told him that she was cutting and she needed further evaluation. 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 : None HEENT: None Psych: Schizophrenia, ADD/ADHD, Other Musculoskeletal: None Derm: None - Past Surgical History Past Surgical History: No - Present Medications Home Medications: Ambulatory Orders Medication Instructions Recorded Confirmed Buspirone HCl 15 mg PO TID 05/20/20 11/10/21 Desvenlafaxine Succinate 100 mg PO DAILY 05/20/20 11/10/21 [Desvenlafaxine Succinate ER] Fludrocortisone [Florinef] 0.2 mg PO DAILY 05/20/20 11/10/21 Midodrine HCl 5 mg PO DAILY 05/20/20 11/10/21 Cetirizine HCl 10 mg PO DAILY 07/13/20 11/10/21 Lisdexamfetamine Dimesylate 20 mg PO DAILY 02/06/21 11/10/21 [Vyvanse] traZODone [Desyrel] 50 mg PO HS #10 tablet 06/05/21 11/10/21 Lumateperone Tosylate [Caplyta] 1 cap PO QPM 08/18/21 11/10/21 Cefpodoxime Proxetil [Vantin] 100 mg PO Q12H #14 tablet 11/10/21 [place] ER [Lithobid] 300 mg PO QPM 11/11/21 11/11/21 - Allergies Allergies/Adverse Reactions: Allergies Allergy/AdvReac Type Severity Reaction Status Date / Time Latex, Natural Rubber Allergy Itching Verified 03/08/23 15:08 walnut Allergy Unknown Verified 03/08/23 15:08 - Social History Does the pt smoke?: No Smoking Status: Never smoker Does the pt drink ETOH?: Yes Does the pt have substance abuse?: No - Immunizations Immunizations are current?: Yes - POLST Patient has POLST: No PD ED PE NORMAL - Vitals Vital signs reviewed: Yes - General General: Alert and oriented X 3, No acute distress, Well developed/nourished - HEENT HEENT: Atraumatic, PERRL - Derm Derm: Other (superficial lacerations to left arm) PD ED PE EXPANDED - Psych Psych: No: Depressed, Suicidal, Homicidal, Tearful, Withdrawn, Poor eye contact, Non verbal, Anxious, Agitated, Combative, Manic, Pressured speech, Flight of ideas, Auditory hallucinations, Visual hallucinations, Tactile hallucinations, Delusions Results - Vitals Vitals: Vital Signs - 24 hr 05/26/24 05/26/24 05/26/24 17:03 19:30 20:15 Temperature 36.7 C 36.1 C L 36.5 C Heart Rate 88 72 70 Respiratory 20 16 16 Rate Blood Pressure 120/72 109/79 110/80 O2 Saturation 100 98 100 Oxygen O2 Source Room air - Labs Labs: Laboratory Tests 05/26/24 05/26/24 05/26/24 17:27 17:32 17:32 WBC 7.3 RBC 4.01 L Hgb 13.2 Hct 39.0 MCV 97.3 MCH 32.9 H MCHC 33.8 RDW 11.6 L Plt Count 307 MPV 11.0 H Neut # (Auto) 4.6 Lymph # (Auto) 2.0 [place] # (Auto) 0.5 Eos # (Auto) 0.1 Baso # (Auto) 0.0 Absolute Nucleated RBC 0.00 Nucleated RBC % 0.0 Sodium 141 Potassium 3.8 Chloride 110 Carbon Dioxide 26 Anion Gap 5.0 L BUN 11 Creatinine 0.7 Estimated GFR (MDRD) 103 Glucose 87 Calcium 8.9 Magnesium 1.7 Total Bilirubin 0.2 AST 10 ALT 8 L Alkaline Phosphatase 56 Total Creatine Kinase 64 Total Protein 6.7 Albumin 4.2 Globulin 2.5 Albumin/Globulin Ratio 1.7 Lipase 26 TSH 1.71 Urine Color YELLOW Urine Clarity CLEAR Urine pH 6.0 Ur Specific [place] 1.010 Urine Protein NEGATIVE Urine Glucose (UA) NEGATIVE Urine Ketones NEGATIVE Urine Occult Blood NEGATIVE Urine Nitrite NEGATIVE Urine Bilirubin NEGATIVE Urine Urobilinogen 0.2 (NORMAL) Ur Leukocyte Esterase NEGATIVE Ur Microscopic Review NOT INDICATED Urine Culture Comments NOT INDICATED Salicylates < 1.5 Urine Opiates Screen NEGATIVE Ur Buprenorphine Scrn NEGATIVE Ur Oxycodone Screen NEGATIVE Urine Methadone Screen NEGATIVE Acetaminophen < 0.1 Ur Barbiturates Screen NEGATIVE Ur Tricyclics Screen NEGATIVE Ur Phencyclidine Scrn NEGATIVE Ur Amphetamine Screen NEGATIVE U Methamphetamines Scrn NEGATIVE U Benzodiazepines Scrn NEGATIVE Urine Cocaine Screen NEGATIVE U Cannabinoids Screen NEGATIVE Ur Drug Screen Comment CUTOFF CONC BELOW: Ethyl Alcohol < 10.0 PD Medical Decision Making - ED course ED course: 24-year-old female presents emergency department for superficial cuts to left forearm. Patient says that she is denying any suicidal homicidal ideation labs are complete for further evaluation she has no leukocytosis no anemia normal kidney function she does not have any abnormalities with her urinalysis and her urine drug screen is also found to be completely unremarkable negative. Patient is safe to be evaluated by telepsych for further evaluation she is also agreeable to be evaluated by telepsych for further evaluation and help with possible other coping skills and techniques when she is experiencing high stress. Telepsych was complete and patient reports to psychiatric provider that she has sincere regret about today's visit and says that she was just attention seeking and she is quite apologetic for wasting emergency resources in time. She has clear direction and goals that she is looking forward to she says that she we will call her therapist to see if she can get in sooner with them for further evaluation and management of these attention-seeking behaviors she continues to deny any suicidal homicidal ideation she has a safety plan at this point time she is safe for discharge. Return precautions given. Departure - Departure Disposition: 01 Home, Self Care Clinical Impression: Self-cutting of wrist Instructions: ED Stress React Comments: Thank you for trusting us with your care today. You have been evaluated by telepsychiatry for further evaluation of your self-cutting. Please follow-up with your psychiatrist about today's ER visit to go over some additional coping techniques. Please call [phone] if you start to develop any suicidal ideation or thoughts you can also text them if you are having any suicidal ideation or thoughts of self-harm. Forms: PCP List Discharge Date/Time: 05/26/24 20:15
[2024-05-26 17:36] LABS: BASOPHILS % (AUTO) 0.5 %; EOSINOPHILS # (AUTO) 0.1 10^3/uL (0.0-0.7); EOSINOPHILS % (AUTO) 1.8 %; HGB - HEMOGLOBIN 13.2 g/dL (12.0-16.0); LYMPHOCYTES % (AUTO) 27.2 %; MEAN CORPUSCULAR HEMOGLOBIN 32.9 pg (27.0-31.0); MEAN CORPUSCULAR HGB CONC 33.8 g/dL (32.0-36.0); MEAN CORPUSCULAR VOLUME 97.3 fL (81.0-99.0); MONOCYTES # (AUTO) 0.5 10^3/uL (0.0-1.0); MONOCYTES % (AUTO) 7.4 %; NEUTROPHILS # (AUTO) 4.6 10^3/uL (1.5-6.6); NEUTROPHILS % (AUTO) 62.8 %; PLT - PLATELET COUNT 307 10^3/uL (130-450); RED BLOOD COUNT 4.01 10^6/uL (4.20-5.40); RED CELL DISTRIBUTION WIDTH 11.6 % (12.0-15.0); WHITE BLOOD COUNT 7.3 x10^3/uL (4.8-10.8)
[2024-05-26 17:50] LABS: BILIRUBIN,URINE NEGATIVE (NEGATIVE); GLUCOSE, URINE (UA) NEGATIVE (NEGATIVE); KETONES,URINE (UA) NEGATIVE (NEGATIVE); LEUKOCYTE ESTERASE, URINE NEGATIVE (NEGATIVE); NITRITE,URINE NEGATIVE (NEGATIVE); OCCULT BLOOD,URINE NEGATIVE (NEGATIVE); PROTEIN,URINE NEGATIVE (NEGATIVE); UROBILINOGEN,URINE 0.2 (NORMAL) E.U./dL (NORMAL)
[2024-05-26 17:54] LABS: ALBUMIN 4.2 g/dL (3.2-5.5); ALBUMIN/GLOBULIN RATIO 1.7 (1.0-2.2); ALKALINE PHOSPHATASE 56 IU/L (42-121); ALT ALANINE AMINOTRANSFERASE 8 IU/L (10-60); AST ASPARTATE AMINOTRANSFERASE 10 IU/L (10-42); BILIRUBIN,TOTAL 0.2 mg/dL (0.2-1.0); BUN - BLOOD UREA NITROGEN 11 mg/dL (6-20); CALCIUM 8.9 mg/dL (8.5-10.3); CARBON DIOXIDE - CO2 26 mmol/L (21-32); CHLORIDE 110 mmol/L (101-111); CK- CREATINE KINASE 64 IU/L (30-223); CREATININE 0.7 mg/dL (0.6-1.3); ETOH - ETHANOL < 10.0 mg/dL; GFR - MDRD 103 (>89); GLUCOSE 87 mg/dL (74-104); LIPASE 26 U/L (11-82); MAGNESIUM 1.7 mg/dL (1.7-2.3); POTASSIUM 3.8 mmol/L (3.5-4.5); SODIUM 141 mmol/L (135-145); TOTAL PROTEIN 6.7 g/dL (6.4-8.9)
[2024-05-26 17:58] LABS: ACETAMINOPHEN < 0.1 ug/mL
[2024-05-26 17:58] LABS: CLARITY,URINE CLEAR (CLEAR)
[2024-05-26 18:00] LABS: AMPHETAMINE SCREEN,URINE NEGATIVE (NEGATIVE); BENZODIAZEPINES SCREEN, URINE NEGATIVE (NEGATIVE); COCAINE SCREEN URINE NEGATIVE (NEGATIVE); METHAMPHETAMINES SCREEN, URINE NEGATIVE (NEGATIVE); OPIATE SCREEN, URINE NEGATIVE (NEGATIVE); THC CANNABINOID SCREEN, URINE NEGATIVE (NEGATIVE); TRICYCLIC ANTIDEPRESSANT,URINE NEGATIVE (NEGATIVE)
[2024-05-26 18:01] LABS: BARBITURATE SCREEN,UR NEGATIVE (NEGATIVE); BUPRENORPHINE SCREEN, URINE NEGATIVE (NEGATIVE); METHADONE SCREEN, URINE NEGATIVE (NEGATIVE); OXYCODONE SCREEN, URINE NEGATIVE (NEGATIVE)
[2024-05-26 18:02] LABS: SALICYLATE < 1.5 mg/dL
[2024-05-26 18:05] LABS: THYROID STIMULATING HORMONE 1.71 uIU/mL (0.34-5.60)
--- NOTE | 2024-05-26 18:55 | TELEPSYCH PHYS NOTE ---
[facility] Tele[facility] Consult Consult Date: 05/26/24 Name of Referring Provider:: ED Reason for Consult: non-suicidal self-injury - Suicide Risk Sreening (ASQ Tool) In the past few weeks, have you wished you were ?: No In the past few weeks, have you felt that you or your family would be better off if you were ?: No In the past week, have you been having thoughts about killing yourself?: No Have you ever tried to kill yourself?: No - Assessment Language: Romansh Stock Tracer Required: No Cultural, Jewish or Spiritual Preferences: none reported Notes: NA Chief Complaint: "I'm safe - I do have to admit something - I didn't feel like I was getting enough attention at home - when I ended up here - I realized what a terrible mistake I made and how I wasted everyone's time - I am really sorry - it was wrong." History of Present Illness: 24 yo female presenting following engagement in non-suicidal self-injury. Patient has a hx of FAS, schizophrenia, depression, anxiety, ADHD. Resides independently in her own apartment but does have staff available that she can contact whenever needed. Patient indicated to ED staff that she has been experiencing increased stress secondary to feeling jealous of her roommate. Patient notes that her ex-roommate had a stroke 5 mos ago and has since moved out. They remain friends and patient has grown increasingly jealous of the attention that her ex-roommate has received since her stroke. Notes that she has frequent visitors and is always receiving gifts. Patient wanted some attention as well so she decided to engage in non-suicidal self-injury. Patient denies t hat this was in response to any emotional distress but rather just a desire for attention. She is feeling very remorseful for her actions. Adamantly denies SI, HI, psychosis. Notes that she is looking forward to her "" moving in with her soon. Does not require psychiatric hospitalization. Suicide Ideation - Homicide Ideation - Self Harm: Denies suicidal ideation. Denies homicidal ideation. Hx of engagement in non- suicidal self-injury. Last time cut was 5 yrs prior to today Psychiatric History - Treatment History: Patient has a hx of anxiety, depression, schizophrenia, FAS. Denies suicide attempts. Reports a hx of psyhciaitr chospitalizations . Patient has a therapist and reports compliance with medications Community Resources Accessed: mental health Family Psych History/ History of suicide: Adopted - mother struggled with alcohol use Nutritional Status: No nutritional concerns - Medication & Allergies Home Medications: Ambulatory Orders Medication Instructions Recorded Confirmed Buspirone HCl 15 mg PO TID 05/20/20 11/10/21 Desvenlafaxine Succinate 100 mg PO DAILY 05/20/20 11/10/21 [Desvenlafaxine Succinate ER] Fludrocortisone [Florinef] 0.2 mg PO DAILY 05/20/20 11/10/21 Midodrine HCl 5 mg PO DAILY 05/20/20 11/10/21 Cetirizine HCl 10 mg PO DAILY 07/13/20 11/10/21 Lisdexamfetamine Dimesylate 20 mg PO DAILY 02/06/21 11/10/21 [Vyvanse] traZODone [Desyrel] 50 mg PO HS #10 tablet 06/05/21 11/10/21 Lumateperone Tosylate [Caplyta] 1 cap PO QPM 08/18/21 11/10/21 Cefpodoxime Proxetil [Vantin] 100 mg PO Q12H #14 tablet 11/10/21 [place] ER [Lithobid] 300 mg PO QPM 11/11/21 11/11/21 Allergies/Adverse Reactions: Allergies Allergy/AdvReac Type Severity Reaction Status Date / Time Latex, Natural Rubber Allergy Itching Verified 03/08/23 15:08 walnut Allergy Unknown Verified 03/08/23 15:08 - Drug & Alcohol History Does patient have Drug/ETOH history or addictive behavior?: No Abuse: Recurrent use of substance despite neg consequences: NONE Dependence: Experiences withdrawal or developed tolerances: NONE - Trauma Does the patient have a history of trauma, abuse, neglect or explotation?: Yes - Personal Information Does the patient have a history or present tendencies for violence?: Past History or present tendencies for violence (Notes): "I have learned to control my anger - I would get verbally abusive but I am working on that with my therapist." Services History: Denies Does patient have any Legal Charges or Investigations?: No Environment & Living Situation - Social, Peer-Group (Note): At home, care home Environment & Living Situation - Social, Peer-Group (Notes): Resides independently in her own apartment. Roommate has not lived with patient for 5 mos. following her stroke. Has staff 4 hours daily Marital Status - Family Circumstances: committed relationship of 6 yrs - patient refers to him as her Stressors - Financial Concerns: ex-roommate was getting attention resulting in patient feeling jealous Education: HS graduate Occupation: works at [employer] Collateral - Interdisciplinary Input: Review of ED documentation - Medical History Psychiatric: reports: Depression, Anxiety, Schizophrenia, ADD/ADHD, Other Neurological: reports: Other Eyes, Ears, Nose, Throat: reports: None Cardiovascular: reports: Other Respiratory: reports: None Gastrointestinal: reports: None Urinary: reports: None 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 Dressed in hospital scrubs. Attitude and Behavior: Calm. Cooperative Speech: Fluent Affect and Mood: Mood is neutral. Affect is flat. Association and Thought Process: Thoughts are somewhat perseverating on her remorse for engaging in non-suicidal self-injury. Goal directed at conclusion of evaluation Thought Content: Denies SI, HI Perception: Denies hallucinatory activity. Notes that she has a hx of psychosis but is controlled with medications. Will experience some psychosis when she consumes al cohol - 1 can 2 x monthly. Discussed abstinence Sensorium, memory and orientation: alert and oriented Intellectual - Cognitive functioning: FAS - mild ID Insight and Judgement: insight is fair. judgment has improved Emotional and Behavioral Functioning: baseline Ability to Self-Care: Able to complete ADLs - Personal Goals Short-term Goals: wants to go home Long-term Goals: "my is going to move into my apartment soon so I am really excited" - Risk/Protective Factors Risk Factors: Trigger events leading to humiliation, shame and/or despair, Sexua l or physical abuse, Inadequate social supports, Social Isolation Protective Factors / Internal: Identifies reasons for living Protective Factors / External: Supportive social network of family or friends, Positive therapeutic relationships, Engaged in work or school - Plan Impression/Risk Assessment: 24 yo female presenting s/p engagement in NSSI in the context of desiring attention. Patient has an extensive psychiatric hx. Notes that she was feeling jealous of the attention that her ex-roommate was receiving following her stroke. Patient engaged in self harm in order to gain some attention herself. Expresses remorse for her actions. Adamantly denies SI, HI, psychosis. Does not present as imminent threat to self or others. Treatment - Therapy Recommendations: continue with OP therapist and medication provider; staff may want to ensure that there is a plan to ensure that patient is feeling heard and validated Pharmacological Recommendations: continue home medications - Time Spent & Provider Location Telepsych consultation conducted via videoconferencing: Yes List names and roles of persons who participated in consult: Martha Ricardo [facility]-. patient Telepsych Provider Location: [facility] Time Spent (Minutes): 30
[2024-05-26 20:25] VITALS: BP 110/80; O2SAT 100
== END 2024-05-26 20:15 | disposition home or self-care (01) ==
LOC: ED 16:50
DX: R45.88 Nonsuicidal self-harm (principal); S51.812A Laceration without foreign body of left forearm, initial encounter; X58.XXXA Exposure to other specified factors, initial encounter
CPT/HCPCS: 36415; 80053; 80143; 80179; 80306; 81003; 82077; 82550; 83690; 83735; 84443; 85025; 99283; 99284; G0425; Q3014; 81001; 87086